=== PATIENT | male | born 1950 | race Caucasian/White ===

== ENCOUNTER 2018-08-27 08:52 | Outpatient (REF) | payer MEDICARE, SELFPAY ==
[2018-08-27 21:34] LABS: ALT 38 U/L (12-78); AST 22 U/L (15-37); Albumin 3.9 g/dL (3.4-5.0); Alkaline Phosphatase 73 U/L (46-116); Anion Gap 10.1 mmol/L (3-11); Bilirubin, Total 0.7 mg/dL (0.2-1.0); CO2 22.9 mmol/L (21.0-32.0); CREATININE 1.13 mg/dL (0.70-1.30); Calcium 8.2 mg/dL (8.5-10.1); Chloride 107 mmol/L (98-107); Cholesterol 191 mg/dL (50-200); Glucose 96 mg/dL (70-100); HDL Cholesterol 29 mg/dL (40-60); LDL CHOLESTEROL 131 mg/dL (<100); Potassium 4.3 mmol/L (3.5-5.1); Sodium 140 mmol/L (136-145); Total Protein 6.9 g/dL (6.4-8.2); Triglyceride 198 mg/dL (30-150)
[2018-08-27 21:48] LABS: Hemoglobin A1C 5.5 % (4.5-6.2)
[2018-08-27 21:57] LABS: BUN 19 mg/dL (7-18)
[2018-08-29 10:31] LABS: PSA, Screening 3.6 ng/ml (0-4.5)
== END 2018-08-27 09:12 ==
LOC: NCHCN 08:52
PROVIDERS: PCP Physician Assistant Medical; Visit Provider Physician Assistant Medical
DX: E78.5 Hyperlipidemia, unspecified (principal); I10 Essential (primary) hypertension; R73.09 Other abnormal glucose; Z12.5 Encounter for screening for malignant neoplasm of prostate; R97.20 Elevated prostate specific antigen [PSA]
CPT/HCPCS: 80053; 80061; 83721; 84153; 83036

== ENCOUNTER → 2018-09-21 13:09 | Outpatient (BNVA) | payer MEDICARE, OTHER, MEDICAID, SELFPAY | PROVIDERS: PCP Physician Assistant Medical; Visit Provider Internal Medicine Cardiovascular Disease | DX: I25.10 Atherosclerotic heart disease of native coronary artery without angina pectoris (principal); I10 Essential (primary) hypertension; E78.5 Hyperlipidemia, unspecified | CPT/HCPCS: 99213 ==

== ENCOUNTER 2018-09-24 07:56 | Day surgery (SDC) | payer MEDICARE, OTHER, MEDICAID, SELFPAY ==
--- NOTE | 2018-09-24 07:00 | W.COLOREPORT ---
Date of service: 09/24/18 Time of Service: :53 Colonoscopy Report Date of procedure: 09/24/18 Pre-op diagnosis general: hx of polyps Post-op diagnosis procedure note: other (multiple polyps, mild diverticulosis) Procedure: Colonoscopy with polypectomy by cold forceps Surgeon: Amie Rogers Anesthesia proc note operative: MAC (Miguel Blancas CRNA /ASA 3) Estimated blood loss (mL): 5 Pathology: other (ascending polyp, sigmoid polyp, rectal polyps X5) Complications: None Disposition: same day Indications: Mr. Tam is a pleasant 68-year-old gentleman who was seen in the office for a colonoscopy. He has a history of polyps. Risks, benefits and complications were reviewed with him and he wished to proceed. No guarantees were given or implied. Prep: Miralax/Dulcolax Procedure Start Time: :53 Procedure End Time: 10:36 Retraction Time: 24 minutes Findings: mild diverticulosis of the sigmoid colon multiple small sessile polyps tattooed area identified of previous tubulovillous adenoma. no polyp noted at this site Procedure Description: After informed consent was obtained the patient was taken to the procedure room and placed in a left decubitous position. Monitors were applied and a time out was done. The patients name, date of , procedure, allergies to medications and metal in their body was reviewed. The patient was then sedated. Once sedated and comfortable a rectal exam was done. External exam was normal. Internal exam revealed a normal sphincter tone and no palpable masses. The prostate was smooth. The scope was then introduced and retroflexed. No internal hemorrhoids were identified. The scope was then advanced to the cecum with some difficulty due to a tortuous colon on the right side. The TI and appendiceal orifice were identified. The prep was adequate. The scope was then slowly retracted over 24 minutes back into the rectum. Multiple polyps were removed with cold forceps. There was also mild diverticulosis noted of the sigmoid colon. The scope was removed and the patient was woken up and taken back to Same day surgery in stable condition. The patient tolerated the procedure well and there were no immediate complications. Follow up: The patient should follow up in 3-5 years unless they develop changes in bowel habits or other new gastrointestinal complaints.
--- NOTE | 2018-09-24 07:02 | PDOC.DSDIS_ITS ---
Discharge Plan Disposition Patient Disposition: HOME Condition: Good Discharge Details Reason For Visit: SCREENING Attending Provider: Amie Rogers Primary Care Provider: Jayro Koch Home Meds and New Rx's Prescriptions: Continue omeprazole 20 mg capsule,delayed release(DR/EC) 20 mg PO DAILY RF: 0 tamsulosin [Flomax] 0.4 mg capsule 0.4 mg PO DAILY RF: 0 amlodipine 5 MG tablet 5 mg PO DAILY Qty: 90 RF: 5 losartan 50 MG tablet 50 mg PO DAILY RF: 0 tadalafil [Cialis] 5 MG tablet 5 mg PO DAILY Qty: 30 RF: 12 aspirin 81 MG tablet,delayed release (DR/EC) 81 mg PO DAILY RF: 0 nitroglycerin 0.4 MG tablet, sublingual 0.4 mg PO PRN PRNRF: 0 Discharge Instructions Instructions: Colonoscopy (DC), Colorectal Polyps (DC), Diverticulosis (DC) Additional Instructions: Findings: Mild diverticulosis Multiple polyps most are probably benign but there might be one or two pre-cancerous polyps Follow up: 3-5 years New Medications: none Please call if you develop: fevers >101.5 Nausea or Vomiting Abdominal pain that is not transient 1. Because there will be medication in your system for the next 24 hours, you may feel a little sleepy. Your coordination will be affected. Therefore: a. Do not drive or operate dangerous equipment for 24 hours. b. Do not drink alcohol beverages for 24 hours (not even beer). c. Plan to go home and rest for the day. 2. Generally there are no restrictions on your activity after a day or so has gone by, but you may feel a bit fatigued for a few days. 3 After you arrive home you may have a light meal and return to a normal diet as you can tolerate it without feeling sick to your stomach. 4. After surgery, you may feel pain or discomfort. This should be only transient , but if it persists please contact your doctor. 5. If there are any questions regarding the findings of your procedure, please feel free to contact your doctor. 6. If you are unable to contact your doctor with a problem, contact the hospital at [phone]. 7. Continue all your regular medications unless directed otherwise. I understand the above instructions and have no questions. Signature of Patient or Responsible Adult Escort Date/Time Name of Responsible Adult Escort Signature of Nurse Date/Time Activity:: Activity as Tolerated Diet:: high fiber diet Discharge Orders Discharge Orders: Discharge Order (Routine); Ordered 09/24/18 Ordered By: Amie Rogers DS: Diagnosis Discharge Diagnosis (1) Colorectal polyps: Status: Acute (2) S/P colonoscopy with polypectomy: Status: Acute (3) Diverticulosis: Status: Acute
[2018-09-24 08:29] VITALS: BP 150/83; PULSE 72; RESP 16; TEMP 36.9; O2SAT 97
[2018-09-24] MEDS: Lactated Ringers 1,000 ML 80 ML IV (08:35)
--- NOTE | 2018-09-24 09:54 | BOWEL_PTH ---
PATIENT: Dominic Tam LOC: [facility] U#:[id number] AGE/SX: 68/M ROOM: RE09/24/[address]: Amie Rogers MD : 1950 BED: DIS: 09/24/2018 SPEC #: [id number] RECD: 09/24/18 12:36 STATUS: GLENN RE #: [id number] PEDRO PABLO: 09/24/18 09:[address]: Amie Rogers DEPT: Surgical Specimen RECD BY: María Marin ENTERED: 09/24/18 12:38 SP TYPE: Bowel OTHR DR: Jayro Koch Tissues: 1 - BIOPSY BOWEL 2 - BIOPSY BOWEL 3 - BIOPSY BOWEL Procedures: GROSS AND MICRO LEVEL 4 Comments: [id number]
[2018-09-24 11:10] VITALS: BP 124/76; PULSE 67; RESP 16; TEMP 36.3; O2SAT 95
== END 2018-09-24 11:43 | disposition home or self-care (01) ==
LOC: SUR 07:56
PROVIDERS: PCP Physician Assistant Medical; Visit Provider Surgery
PROC: 0DJD8ZZ Inspection of Lower Intestinal Tract, Via Natural or Artificial Opening Endoscopic (ICD-10-PCS; CPT 45378; principal; 2018-09-24 10:30)
DX: Z12.11 Encounter for screening for malignant neoplasm of colon (principal); D12.2 Benign neoplasm of ascending colon; K63.5 Polyp of colon; K62.1 Rectal polyp; Z86.010 Personal history of colon polyps; I10 Essential (primary) hypertension; G47.33 Obstructive sleep apnea (adult) (pediatric); K57.30 Diverticulosis of large intestine without perforation or abscess without bleeding; K21.9 Gastro-esophageal reflux disease without esophagitis
CPT/HCPCS: 45380; 88305

== ENCOUNTER 2018-10-01 08:54 | Emergency (ER) | payer MEDICARE, OTHER, MEDICAID, SELFPAY ==
[2018-10-01 09:01] VITALS: BP 141/73; PULSE 95; RESP 18; TEMP 36.1; O2SAT 96
--- NOTE | 2018-10-01 09:16 | DI.RAD_ITS ---
SYMPTOM/DIAGNOSIS: COUGH, WHEEZING FOR 2 WEEKS PA AND LATERAL CHEST: 10/01 Heart is not enlarged. There are areas of patchy increased radiodensity in lingula and left lower lobe consistent with acute pneumonia. These findings were not present on examination of 04/19/17. Otherwise, lungs are fairly clear. No pleural effusion seen. CONCLUSION: Findings consistent with left basilar pneumonia.
--- NOTE | 2018-10-01 09:26 | ED.GENADUL_ITS ---
Discharge Plan Disposition Patient Disposition: HOME Condition: Good Discharge Details Chief Complaint: RespSymp Clinical Impression: Pneumonia Primary Care Provider: Jayro Koch ED Provider: Flako Rnig Home Meds and New Rx's Prescriptions: New azithromycin [Zithromax] 500 mg tablet See Label Instructions .ROUTE .COMPLEX Qty: 6 RF: 0 prednisone 20 mg tablet 20 mg PO BID Qty: 10 RF: 0 No Action omeprazole 20 mg capsule,delayed release(DR/EC) 20 mg PO DAILY RF: 0 tamsulosin [Flomax] 0.4 mg capsule 0.4 mg PO DAILY RF: 0 amlodipine 5 MG tablet 5 mg PO DAILY Qty: 90 RF: 5 losartan 50 MG tablet 50 mg PO DAILY RF: 0 tadalafil [Cialis] 5 MG tablet 5 mg PO DAILY Qty: 30 RF: 12 aspirin 81 MG tablet,delayed release (DR/EC) 81 mg PO DAILY RF: 0 nitroglycerin 0.4 MG tablet, sublingual 0.4 mg PO PRN PRNRF: 0 Discharge Instructions Instructions: Pneumonia (ED) Referrals: Jayro Koch PA [Primary Care Provider] - Return if symptoms worsen Medical Decision Making Likely URI with possible pneumonia. Will start prednisone for the wheezing and administer albuterol neb. Likely start antibiotic for suspect pneumonia for symptoms for two weeks. Apprised of x-ray impression. He tolerated treatment and prednisone. Will prescribe Z-Pack. Respiratory came down to teach him how to use albuterol inhaler with spacer. Advised to return if symptoms worsen otherwise with pcp. Imaging Data Radiologic Study: Imaging: X-Ray My impression: pneumonia Radiologist's impression: pneumonia HPI General Date/Time Provider Initiated Documentation: 10/01/18 09:07 . Limitations to Documentation: no limitations . Information obtained by: patient . History of Present Illness 68 year old M presents to the emergency department with the chief complaint of URI, HPI Narrative: 68 y/o male here with c/o cough and wheezing for the past two weeks. HE tells me the symptoms started two weeks ago but thought he was on the down side of the illness last week when he had a colonoscopy. However the past five day the cough and wheezing has came back and gotten worse. Denies any fever or chills. Symptoms are worse at night. Non smoker. Related Data Home Medications Medication Instructions Recorded Confirmed aspirin 81 mg PO DAILY 06/06/13 10/01/18 nitroglycerin 0.4 mg PO PRN PRN 04/19/17 10/01/18 amlodipine 5 mg PO DAILY #90 tab-cap 06/29/17 10/01/18 losartan 50 mg PO DAILY tab-cap 03/05/18 10/01/18 tadalafil [Cialis] 5 mg PO DAILY #30 tab-cap 03/19/18 10/01/18 omeprazole 20 mg capsule,delayed 20 mg PO DAILY 09/14/18 10/01/18 release tamsulosin 0.4 mg capsule 0.4 mg PO DAILY tab-cap 09/21/18 10/01/18 azithromycin [Zithromax] See Label Instructions .ROUTE 10/01/18 .COMPLEX #6 tab prednisone 20 mg PO BID #10 tab 10/01/18 Previous Rx's Medication Instructions Recorded tadalafil [Cialis] 5 mg PO DAILY #30 tab-cap 03/19/18 azithromycin [Zithromax] See Label Instructions .ROUTE 10/01/18 .COMPLEX #6 tab prednisone 20 mg PO BID #10 tab 10/01/18 Allergies Allergy/AdvReac Type Severity Reaction Status Date / Time atorvastatin AdvReac Intermediate heart skips Verified 10/01/18 09:03 citalopram AdvReac Mild dizzyness Verified 10/01/18 09:03 losartan AdvReac Mild dizzyness Verified 10/01/18 09:03 simvastatin [From Zocor] AdvReac Mild dizzyness Verified 10/01/18 09:03 General Stated Complaint: RespSymp IZABELLA: 3 Review of Systems Eyes Reports system reviewed and no additional complaints, except as docu ENT Reports nasal congestion and Reports nasal discharge Cardiovascular Reports system reviewed and no additional complaints, except as docu Respiratory Reports cough and Reports wheezing Gastrointestinal Reports system reviewed and no additional complaints, except as docu Genitourinary Reports system reviewed and no additional complaints, except as docu Musculoskeletal Reports system reviewed and no additional complaints, except as docu Integumentary/Breasts Reports system reviewed and no additional complaints, except as docu Neurologic Reports system reviewed and no additional complaints, except as docu Allergic/Immunologic Reports wheezing PFSH Medical History BPH (benign prostatic hyperplasia) Back pain Cervicalgia Colonic polyp Coronary artery disease Elevated PSA GERD (gastroesophageal reflux disease) HTN (hypertension) Hyperlipidemia IAN (obstructive sleep apnea) Psoriasis Social History Smoking/Tobacco Use Status: Never alcohol intake: former substance use type: does not use Surgical History Colonoscopy planned (Acute ~09/24/18) H/O colonoscopy (Chronic 09/19/17) Arthroplasty of knee Colonoscopy - MAC (09/19/17) Coronary Stent Extraction of cataract colonoscopy (12/21/16) Exam Const General: cooperative, healthy appearing, comfortable and no acute distress Nutritional Appearance: average body habitus Orientation: alert, awake and oriented x3 HENMT Head: normal to inspection and atraumatic Ears: hearing grossly normal bilaterally, external ears normal and TM's normal bilaterally General nose exam: external nose normal, nares normal and no nasal discharge Mouth: oral mucosae normal Throat: posterior oropharynx abnormal erythema and exudates Eyes General: appearance normal, both eyes and all related structures Neck Neck: normal visual inspection, full ROM and no lymphadenopathy Resp Effort & Inspection: normal respiratory effort Auscultation: bronchovesicular breath sounds bilaterally (upper), rhonchi left upper (mild) and right upper (mild) and no wheezes Cardio Rate: regular rate Rhythm: regular rhythm Heart Sounds: S1 normal and S2 normal Skin General skin exam: no rashes or lesions noted Neuro General: alert, awake, oriented x3 and gait normal Extrem General: normal to inspection, full ROM and normal capillary refill Course Vital Signs Temperature 36.1 C L 10/01/18 09:01 Pulse 95 H 10/01/18 09:01 Respiratory Rate 18 10/01/18 09:01 Blood Pressure 141/73 H 10/01/18 09:01 Pulse Oximetry 96 10/01/18 09:01 Temperature 36.1 C L 10/01/18 09:01 Temperature Source Skin 10/01/18 09:01 Pulse 95 H 10/01/18 09:01 Respiratory Rate 18 10/01/18 09:01 Respiratory Effort 10/01/18 09:02 Blood Pressure 141/73 H 10/01/18 09:01 Blood Pressure Position Sitting 10/01/18 09:01 Pulse Oximetry 96 10/01/18 09:01 Oxygen Delivery Method Room Air 10/01/18 09:01 Oxygen Flow Rate 0 10/01/18 09:01 Pain Level 0 10/01/18 09:01
[2018-10-01] MEDS: predniSONE 20 MG TAB 60 MG PO (09:34)
[2018-10-01] MEDS: Albuterol 2.5 MG/3 ML INH SOLN VIAL UPD (09:35)
[2018-10-01] MEDS: Albuterol HFA 8 GM 60 PUFF INH IH (10:27)
[2018-10-01] MEDS: Inhaler, Assist Device 1 EACH MC (10:28)
[2018-10-01 10:38] VITALS: BP 95/59; PULSE 105; RESP 16; TEMP 36.9; O2SAT 93
== END 2018-10-01 10:44 | disposition home or self-care (01) ==
PROVIDERS: Emergency Provider Nurse Practitioner Family; PCP Physician Assistant Medical
DX: J18.9 Pneumonia, unspecified organism (principal); I10 Essential (primary) hypertension
CPT/HCPCS: 94640; 99283; 71046; J7512; J7613

== ENCOUNTER 2018-10-17 16:55 | Outpatient (REF) | payer MEDICARE, OTHER, SELFPAY ==
[2018-10-17 20:01] LABS: Abs Immature Grans 0.01 k/cumm (0.0-0.09); Absolute Basophil Count 0.05 k/cumm (0.0-0.2); Absolute Lymphocyte Count 1.79 k/cumm (1.2-3.4); Absolute Monocyte Count 0.53 k/cumm (0.11-0.7); Basophils % 0.7; HCT 38.1 % (40.0-50.0); HGB 13.4 g/dL (13.5-17.5); Immature Grans % 0.1; Lymphocytes % 25.6; Mean Corp. HGB Concentration 35.2 g/dL (32.0-36.0); Mean Corpuscular Hemoglobin 31.5 pg (27.0-33.0); Mean Corpuscular Volume 89.6 fL (80-95); Mean Platelet Volume 9.8 fL (8.0-11.0); Monocytes % 7.6; Platelet Count 275 x1000/uL (130-400); RBC 4.25 m/cumm (4.50-6.00); RBC Distribution Width 13.6 % (11.8-14.1); White Blood Cell Count 6.98 k/cumm (4.4-10.8)
[2018-10-17 20:36] LABS: ALT 48 U/L (12-78); AST 23 U/L (15-37); Albumin 3.3 g/dL (3.4-5.0); Alkaline Phosphatase 82 U/L (46-116); Anion Gap 11.9 mmol/L (3-11); BUN 19 mg/dL (7-18); Bilirubin, Total 0.5 mg/dL (0.2-1.0); CO2 23.1 mmol/L (21.0-32.0); CREATININE 1.18 mg/dL (0.70-1.30); Calcium 8.5 mg/dL (8.5-10.1); Chloride 104 mmol/L (98-107); Glucose 97 mg/dL (70-100); Potassium 4.3 mmol/L (3.5-5.1); Sodium 139 mmol/L (136-145); Total Protein 6.5 g/dL (6.4-8.2)
== END 2018-10-17 17:15 ==
LOC: NCHCN 16:55
PROVIDERS: PCP Physician Assistant Medical; Visit Provider Physician Assistant Medical
DX: J18.9 Pneumonia, unspecified organism (principal)
CPT/HCPCS: 80053; 85025

== ENCOUNTER 2018-10-18 00:24 | Outpatient (CLI) | payer MEDICARE, OTHER, MEDICAID, SELFPAY ==
--- NOTE | 2018-10-18 11:00 | DI.RAD_ITS ---
SYMPTOM/DIAGNOSIS: PNEUMONIA J18.9 PA AND LATERAL CHEST: Comparison is made with 01 Oct 2018. The previously noted lingular densities have now cleared. The heart size is normal. The aorta is mildly tortuous. IMPRESSION: Interval clearing of lingular infiltrate.
== END 2018-10-18 00:44 ==
PROVIDERS: PCP Physician Assistant Medical; Visit Provider Physician Assistant Medical
DX: J18.9 Pneumonia, unspecified organism (principal)
CPT/HCPCS: 71046

== ENCOUNTER 2018-11-04 14:10 | Emergency (ER) | payer MEDICARE, OTHER, SELFPAY ==
[2018-11-04 14:19] VITALS: BP 146/93; PULSE 91; TEMP 37; O2SAT 95
--- NOTE | 2018-11-04 14:30 | DI.RAD_ITS ---
SYMPTOM/DIAGNOSIS: COUGH, RECENT PNEUMONIA IN LLL PA AND LATERAL CHEST: 11/04/18 The heart is normal in size. The lungs are clear. The mediastinal structures and pleura appear intact. CONCLUSION: Normal chest.
[2018-11-04 14:38] VITALS: PULSE 91; RESP 16; RESP 4; RESP 8; O2SAT 95
[2018-11-04] MEDS: Albuterol/Ipratropium 3 ML UPD VIAL UPD (14:38)
[2018-11-04] MEDS: methylPREDNISolone SUCC 125 MG VIAL IM (14:39)
[2018-11-04 15:06] VITALS: RESP 1
--- NOTE | 2018-11-04 15:24 | DI.VRAD_ITS ---
EXAM: XR Chest, 2 Views EXAM DATE/TIME: 11/04/2018 2:31 PM CLINICAL HISTORY: 68 years old, male; Signs and symptoms; Cough; Patient HX: Cough, recent pneumoni in ll lobe TECHNIQUE: XR of the chest, 2 views. COMPARISON: CR XR CHEST 2V PA LATERAL 10/18/2018 10:52 AM FINDINGS: Lungs: No focal peripheral lung consolidation, air bronchogram formation, or silhouette sign. Pleural space: No pleural effusion or pneumothorax. Heart/Mediastinum: The heart is not enlarged. The mediastinal contours are normal. Bones/joints: No acute osseous abnormality. IMPRESSION: No pneumonia. Dictated and Authenticated by: Mark Nunez MD. Ordering:LYDIA Alvarado MD
--- NOTE | 2018-11-04 15:50 | ED.GENADUL_ITS ---
Discharge Plan Disposition Patient Disposition: HOME Condition: Good Discharge Details Chief Complaint: RespSymp Clinical Impression: Asthma, Bronchitis Primary Care Provider: Jayro Koch ED Provider: Christiano Tom Home Meds and New Rx's Prescriptions: New prednisone 50 MG tablet 50 mg PO DAILY Qty: 5 RF: 0 benzonatate [Tessalon Perles] 100 mg capsule 100 mg PO TID PRN (Reason: cough) Qty: 30 RF: 0 No Action omeprazole 20 mg capsule,delayed release(DR/EC) 20 mg PO DAILY RF: 0 tamsulosin [Flomax] 0.4 mg capsule 0.4 mg PO DAILY RF: 0 amlodipine 5 MG tablet 5 mg PO DAILY Qty: 90 RF: 5 losartan 50 MG tablet 50 mg PO DAILY RF: 0 tadalafil [Cialis] 5 MG tablet 5 mg PO DAILY Qty: 30 RF: 12 aspirin 81 MG tablet,delayed release (DR/EC) 81 mg PO DAILY RF: 0 nitroglycerin 0.4 MG tablet, sublingual 0.4 mg PO PRN PRNRF: 0 Discharge Instructions Instructions: Asthma (ED), Acute Bronchitis (ED) Additional Instructions: Please take the steroid pill as directed as well as the cough medicine. Please follow-up with your primary care provider for discussion about chronic inhaled steroid therapy. Please continue to use your home nebulizer every 4-6 hours. If you notice any worsening of your symptoms, or any new symptoms such as vomiting, diarrhea, fever, chills, shortness of breath, chest pain, numbness, weakness, or fainting , please return immediately to the emergency department for reevaluation. Please follow up with your primary care provider as soon as possible for reassessment and reevaluation. As always, it was a pleasure participating in your medical care today. Referrals: Jayro Koch PA [Primary Care Provider] - Medical Decision Making This is a pleasant 68-year-old male who presents for evaluation of cough for the last 2 months. The patient initially had a cough for the first month he had cough with productive green and yellow sputum, he received a chest x-ray, was diagnosed with pneumonia and given azithromycin. He did well with this however his symptoms eventually returned. He was then started on a new antibiotic by his primary care provider was on this for 2 weeks and had complete resolution of his symptoms. He was also on steroids and nebulizer at that time. Last antibiotic was finished 2 weeks ago. Since then he has had a slow return of his symptoms however they have been much more mild this time. He has never had a fever, and he still has no fever. He does admit to a mild chronic cough, and some productive clear white sputum. His symptoms are completely resolved when he takes his DuoNeb. Made worsened by nothing. He denies any significant chest pain or severe shortness of breath. He denies any chills, nausea, vomiting, or diarrhea. He has no other complaints at this time. He denies any significant chest pain, arm neck or shoulder pain. Past medical history is positive for reflux, cardiac stents, and hypertension. He states that his symptoms are completely different than any of his heart problems that he has had in the past. He denies any tobacco use. He denies any history of exposure to asbestos, he does heat with a wood stove at home. Here in the emergency department the patient had notable wheezes throughout, no evidence of crackles. Chest x-ray was performed and demonstrates no evidence of acute pneumonia. With nonpurulent sputum, no fevers, no hypoxemia and reassuring vital signs I feel his symptoms more clinically consistent with bronchitis and reactive airway disease than actual pneumonia. We did give him a breathing treatment here in the patient had complete resolution of his symptoms. Will recommend continued nebulizer use at home, we will give steroids for outpatient use. With no signs of infectious etiology that I can appreciate on exam or imaging I do not feel that antibiotics are indicated at this time. I have encouraged the patient to follow-up closely with his primary care provider for potential inhaled steroid therapy if he does not improve with the oral steroids. Discussed red flags which to return the patient understands. I have extensively reviewed the treatment plan and discharge instructions with the patient. I have addressed all patient concerns at this time. The patient was made aware of what symptoms to monitor for that would warrant a return to the emergency department. Discussed the plan with the patient, they demonstrate verbal understanding and agreement with our assessment and plan at this time. FINDINGS: Lungs: No focal peripheral lung consolidation, air bronchogram formation, or silhouette sign. Pleural space: No pleural effusion or pneumothorax. Heart/Mediastinum: The heart is not enlarged. The mediastinal contours are normal. Bones/joints: No acute osseous abnormality. IMPRESSION: No pneumonia. Dictated and Authenticated by: Mark Nunez MD. HPI General Date/Time Provider Initiated Documentation: 11/04/18 14:13 . HPI Narrative: This is a pleasant 68-year-old male who presents for evaluation of cough for the last 2 months. The patient initially had a cough for the first month he had cough with productive green and yellow sputum, he received a chest x-ray, was diagnosed with pneumonia and given azithromycin. He did well with this however his symptoms eventually returned. He was then started on a new antibiotic by his primary care provider was on this for 2 weeks and had complete resolution of his symptoms. He was also on steroids and nebulizer at that time. Last antibiotic was finished 2 weeks ago. Since then he has had a slow return of his symptoms however they have been much more mild this time. He has never had a fever, and he still has no fever. He does admit to a mild chronic cough, and some productive clear white sputum. His symptoms are completely resolved when he takes his DuoNeb. Made worsened by nothing. He denies any significant chest pain or severe shortness of breath. He denies any chills, nausea, vomiting, or diarrhea. He has no other complaints at this time. He denies any significant chest pain, arm neck or shoulder pain. Past medical history is positive for reflux, cardiac stents, and hypertension. He states that his symptoms are completely different than any of his heart problems that he has had in the past. He denies any tobacco use. He denies any history of exposure to asbestos, he does heat with a wood stove at home. Related Data Home Medications Medication Instructions Recorded Confirmed aspirin 81 mg PO DAILY 06/06/13 11/04/18 nitroglycerin 0.4 mg PO PRN PRN 04/19/17 11/04/18 amlodipine 5 mg PO DAILY #90 tab-cap 06/29/17 11/04/18 losartan 50 mg PO DAILY tab-cap 03/05/18 11/04/18 tadalafil [Cialis] 5 mg PO DAILY #30 tab-cap 03/19/18 11/04/18 omeprazole 20 mg capsule,delayed 20 mg PO DAILY 09/14/18 11/04/18 release tamsulosin 0.4 mg capsule 0.4 mg PO DAILY tab-cap 09/21/18 11/04/18 benzonatate [Tessalon Perles] 100 mg PO TID PRN #30 cap 11/04/18 prednisone 50 mg PO DAILY #5 tab 11/04/18 Previous Rx's Medication Instructions Recorded tadalafil [Cialis] 5 mg PO DAILY #30 tab-cap 03/19/18 benzonatate [Tessalon Perles] 100 mg PO TID PRN #30 cap 11/04/18 prednisone 50 mg PO DAILY #5 tab 11/04/18 Allergies Allergy/AdvReac Type Severity Reaction Status Date / Time atorvastatin AdvReac Intermediate heart skips Verified 11/04/18 14:23 citalopram AdvReac Mild dizzyness Verified 11/04/18 14:23 losartan AdvReac Mild dizzyness Verified 11/04/18 14:23 simvastatin [From Zocor] AdvReac Mild dizzyness Verified 11/04/18 14:23 General Stated Complaint: RespSymp IZABELLA: 3 Review of Systems Review of Systems All systems reviewed & are unremarkable except as noted in HPI and below PFSH Medical History BPH (benign prostatic hyperplasia) Back pain Cervicalgia Colonic polyp Coronary artery disease Elevated PSA GERD (gastroesophageal reflux disease) HTN (hypertension) Hyperlipidemia IAN (obstructive sleep apnea) Psoriasis Surgical History Colonoscopy planned (Acute ~09/24/18) H/O colonoscopy (Chronic 09/19/17) Arthroplasty of knee Colonoscopy - MAC (09/19/17) Coronary Stent Extraction of cataract colonoscopy (12/21/16) Social History Smoking/Tobacco Use Status: Never alcohol intake: former substance use type: does not use Exam Narrative Exam Narrative: 1.Const: Well-nourished, Well-developed, appearing stated age 2.Eyes: PERRL, no conjunctival injection, and symmetrical lids. 3.ENT: Atraumatic external nose and ears. Moist MM. Neck: Symmetric, trachea midline, No thyromegaly. 4.CVS: +S1/S2, No murmurs or gallops. Peripheral pulses 2+ and equal in all extremities. Brisk capillary refill in all extremities. 5.RESP: Unlabored respiratory effort. Clear to auscultation bilaterally. No rales or rhonchi. Notable wheezes throughout, no significant crackles. 6.GI: Soft, Nontender/Nondistended, No hepatosplenomegaly. No guarding or rebound. 7.MSK: Normocephalic/Atraumatic, Extremities w/o deformity or ttp No cyanosis or clubbing, Normal movement of all extremities 8.Skin: Warm, Dry. No rashes or lesions. 9.Neuro: stone cutter II-XII grossly intact. Sensation grossly intact, no focal neurologic deficits. 10.Psych: (AAO) x3. Appropriate mood and affect Course Vital Signs Temperature 37.0 C 11/04/18 14:19 Pulse 91 H 11/04/18 14:19 Blood Pressure 146/93 H 11/04/18 14:19 Pulse Oximetry 95 11/04/18 14:19 Temperature 37.0 C 11/04/18 14:19 Temperature Source Temporal Artery Scan 11/04/18 14:19 Pulse 91 H 11/04/18 14:38 Respiratory Rate 16 11/04/18 14:38 Respiratory Effort 11/04/18 14:22 Blood Pressure 146/93 H 11/04/18 14:19 Blood Pressure Position Sitting 11/04/18 14:19 Pulse Oximetry 95 11/04/18 14:38 Oxygen Delivery Method Room Air 11/04/18 14:38 Oxygen Flow Rate 0 11/04/18 14:38 Pain Level 0 11/04/18 14:19 Comment 11/04/18 14:19
== END 2018-11-04 15:59 | disposition home or self-care (01) ==
PROVIDERS: Emergency Provider Student in an Organized Health Care Education/Training Program; PCP Physician Assistant Medical
DX: J44.0 Chronic obstructive pulmonary disease with (acute) lower respiratory infection (principal); J20.9 Acute bronchitis, unspecified; J45.909 Unspecified asthma, uncomplicated; I10 Essential (primary) hypertension
CPT/HCPCS: 94640; 96372; 99284; 71046; 99285; J2930; J7620

== ENCOUNTER 2018-11-10 14:53 | Emergency (ER) | payer MEDICARE, MEDICAID, OTHER, SELFPAY ==
[2018-11-10] VITALS (24 sets, daily range): BP systolic 134–168; BP diastolic 73–90; PULSE 74–99; RESP 1–28; TEMP 36.4; O2SAT 95–99
--- NOTE | 2018-11-10 15:03 | ED.GENADUL_ITS ---
Discharge Plan Disposition Patient Disposition: HOME Condition: Improving Discharge Details Chief Complaint: SOB Clinical Impression: Pneumonia, Acute bronchospasm Primary Care Provider: Jayro Koch ED Provider: Guille Smith Home Meds and New Rx's Prescriptions: New cefdinir 300 mg capsule 300 mg PO Q12H 10 Days Qty: 20 RF: 0 prednisone 10 mg tablet See Rx Instructions .ROUTE .COMPLEX Qty: 45 RF: 0 Continued omeprazole 20 mg capsule,delayed release(DR/EC) 20 mg PO DAILY RF: 0 tamsulosin [Flomax] 0.4 mg capsule 0.4 mg PO DAILY RF: 0 amlodipine 5 MG tablet 5 mg PO DAILY Qty: 90 RF: 5 losartan 50 MG tablet 50 mg PO DAILY RF: 0 tadalafil [Cialis] 5 MG tablet 5 mg PO DAILY Qty: 30 RF: 12 aspirin 81 MG tablet,delayed release (DR/EC) 81 mg PO DAILY RF: 0 nitroglycerin 0.4 MG tablet, sublingual 0.4 mg PO PRN PRNRF: 0 prednisone 50 MG tablet 50 mg PO DAILY Qty: 5 RF: 0 benzonatate [Tessalon Perles] 100 mg capsule 100 mg PO TID PRN (Reason: cough) Qty: 30 RF: 0 Medical Decision Making 68-year-old male who has struggled with upper respiratory illness over 2 months time with multiple rounds of antibiotics and brief bursts of steroids. He states that after the recent burst of steroids administered on 1223, after ceasing them he had recurrent coughing with wheeze. He arrives to the emergency department tachypneic and unable to speak in full sentences but with room air sat of 96%. He is wheezy on exam. Differential diagnosis includes pneumonitis, bronchitis, COPD exacerbation, and must exclude pulmonary embolism. Patient had IV access established, placed on a composing machine operator/tender, given steroids, inhaled beta agonist, referred for laboratory testing and chest x-ray. Chest x-ray clear. CT reveals patchy densities in the right upper and right lower lobe consistent with pneumonitis. Patient fairly dramatically improved following DuoNeb and steroids. I think he has persistent bronchospasm and persistent pneumonia. He is given a dose of IV ceftriaxone I will place him on a course of cefpodoxime. He will require a longer burst and subsequent taper of prednisone. I discussed this plan of management as well as follow-up and return precautions with him. He stable, improved, appropriate for discharge home at this time. ECG Data Attestation: I personally reviewed and interpreted this ECG (s) as follows: Interpretation: Normal sinus rhythm, the rate is 95, QRS is narrow, there is no ST segment elevation HPI General Mode of arrival: wheelchair . Date/Time Provider Initiated Documentation: 11/10/18 14:53 . Limitations to Documentation: no limitations . Information obtained by: patient and family . History of Present Illness 68 year old M presents to the emergency department with the chief complaint of Cough and shortness of breath, described as severe, Quality is described as dull and constant, Patient started experiencing this day(s) and it has been constant. No relieving factors improve symptom(s), No exacerbating factors reported . Patient notes cough and shortness of breath. Patient did receive the following treatments prior to arrival, none HPI Narrative: Cough and shortness of breath, recurrent and worsening since stopping prednisone that was prescribed on November 04. No current antibiotics. Similar episodes over 2 months this fall with repeated doses of antibiotic Related Data Home Medications Medication Instructions Recorded Confirmed aspirin 81 mg PO DAILY 06/06/13 11/04/18 nitroglycerin 0.4 mg PO PRN PRN 04/19/17 11/04/18 amlodipine 5 mg PO DAILY #90 tab-cap 06/29/17 11/04/18 losartan 50 mg PO DAILY tab-cap 03/05/18 11/04/18 tadalafil [Cialis] 5 mg PO DAILY #30 tab-cap 03/19/18 11/04/18 omeprazole 20 mg capsule,delayed 20 mg PO DAILY 09/14/18 11/04/18 release tamsulosin 0.4 mg capsule 0.4 mg PO DAILY tab-cap 09/21/18 11/04/18 benzonatate [Tessalon Perles] 100 mg PO TID PRN #30 cap 11/04/18 prednisone 50 mg PO DAILY #5 tab 11/04/18 cefdinir 300 mg PO Q12H 10 Days #20 cap 11/10/18 prednisone See Rx Instructions .ROUTE 11/10/18 .COMPLEX #45 tab Previous Rx's Medication Instructions Recorded tadalafil [Cialis] 5 mg PO DAILY #30 tab-cap 03/19/18 benzonatate [Tessalon Perles] 100 mg PO TID PRN #30 cap 11/04/18 prednisone 50 mg PO DAILY #5 tab 11/04/18 cefdinir 300 mg PO Q12H 10 Days #20 cap 11/10/18 prednisone See Rx Instructions .ROUTE 11/10/18 .COMPLEX #45 tab Allergies Allergy/AdvReac Type Severity Reaction Status Date / Time atorvastatin AdvReac Intermediate heart skips Verified 11/04/18 14:23 citalopram AdvReac Mild dizzyness Verified 11/04/18 14:23 losartan AdvReac Mild dizzyness Verified 11/04/18 14:23 simvastatin [From Zocor] AdvReac Mild dizzyness Verified 11/04/18 14:23 General IZABELLA: 3 Review of Systems Review of Systems 8 systems reviewed and otherwise negative, no lower extremity pain, swelling, edema PFSH Medical History BPH (benign prostatic hyperplasia) Back pain Cervicalgia Colonic polyp Coronary artery disease Elevated PSA GERD (gastroesophageal reflux disease) HTN (hypertension) Hyperlipidemia IAN (obstructive sleep apnea) Psoriasis Surgical History Colonoscopy planned (Acute ~09/24/18) H/O colonoscopy (Chronic 09/19/17) Arthroplasty of knee Colonoscopy - MAC (09/19/17) Coronary Stent Extraction of cataract colonoscopy (12/21/16) Social History Smoking/Tobacco Use Status: Never alcohol intake: former substance use type: does not use Exam Narrative Exam Narrative: GEN: awake, alert, oriented 3. Pleasant, well groomed, interactive. HEAD: Normocephalic, atraumatic ENT: Mucous membranes moist, oropharynx unremarkable, External ear exam unremarkable EYES: PERRL, EOMI NECK: Full ROM, no DENISE, no menigismus CHEST/RESP: Nontender, increased respiratory rate and work of breathing, diminished throughout with bilateral end expiratory wheeze CARDIOVASCULAR: RRR, no murmur, rub rashaun. 2+ Rad pulse bilateral ABDOMEN: Soft, nontender, no mass. +Bowel sounds EXT: Full ROM, no edema, no rash Neuro: Grossly normal neurologic exam, conversant, interactive. Psych: Speech fluent, thoughts congruent, affect normal
[2018-11-10] MEDS: Albuterol/Ipratropium 3 ML UPD VIAL UPD (15:11)
--- NOTE | 2018-11-10 15:12 | DI.COMBO_ITS ---
SYMPTOM/DIAGNOSIS: RECURRENT COUGH, SOB PORTABLE AP CHEST: Comparison is made with 11/04/18. The heart size is normal. The aorta is tortuous. The lungs appear clear. No infiltrate, effusion or pulmonary edema is seen. There is no evidence of a pneumothorax. IMPRESSION: Negative portable chest xray. PE CHEST CT: CT angiography was performed with multi slice acquisition and multi planar and 3D reconstruction. The pulmonary arteries are not opacified and pulmonary emboli cannot be excluded. There is mild dilatation of the ascending aorta to 3.9 cm. There is no evidence of dissection. The lungs show mild respiratory motion. There is a question of a small infiltrate seen laterally in the right lung base as well as in the posterolateral aspect of the right upper lobe. There is minimal atelectasis versus scarring in the lingula. No pleural or pericardial effusions are seen. Coronary artery calcifications are noted. There is a small hiatal hernia. IMPRESSION: Mild dilatation of the ascending thoracic aorta. No evidence of dissection.
[2018-11-10] MEDS: methylPREDNISolone SUCC 125 MG VIAL IM (15:15)
[2018-11-10 15:18] LABS: Abs Immature Grans 0.15 k/cumm (0.0-0.09); Absolute Basophil Count 0.04 k/cumm (0.0-0.2); Absolute Eosinophil Count 1.28 k/cumm (0.0-0.7); Absolute Lymphocyte Count 1.94 k/cumm (1.2-3.4); Absolute Monocyte Count 0.71 k/cumm (0.11-0.7); Basophils % 0.4; Eosinophils % 13.2; HCT 39.9 % (40.0-50.0); HGB 14.1 g/dL (13.5-17.5); Immature Grans % 1.5; Mean Corp. HGB Concentration 35.3 g/dL (32.0-36.0); Mean Corpuscular Hemoglobin 30.2 pg (27.0-33.0); Mean Corpuscular Volume 85.4 fL (80-95); Mean Platelet Volume 8.5 fL (8.0-11.0); Monocytes % 7.3; Neutrophils % 57.6; Platelet Count 245 x1000/uL (130-400); RBC 4.67 m/cumm (4.50-6.00); RBC Distribution Width 14.1 % (11.8-14.1); White Blood Cell Count 9.72 k/cumm (4.4-10.8)
[2018-11-10 15:27] LABS: Diff Comment Agrees w/ Instrument
[2018-11-10 15:28] LABS: RBC Morphology Normal
[2018-11-10 15:32] LABS: ALT 39 U/L (12-78); AST 18 U/L (15-37); Albumin 3.5 g/dL (3.4-5.0); Alkaline Phosphatase 70 U/L (46-116); Anion Gap 8.8 mmol/L (3-11); BUN 22 mg/dL (7-18); Bilirubin, Total 0.5 mg/dL (0.2-1.0); CO2 23.2 mmol/L (21.0-32.0); CREATININE 1.14 mg/dL (0.70-1.30); Calcium 7.8 mg/dL (8.5-10.1); Chloride 103 mmol/L (98-107); Glucose 112 mg/dL (70-100); Magnesium 1.9 mg/dL (1.8-2.4); Potassium 3.6 mmol/L (3.5-5.1); Sodium 135 mmol/L (136-145); Total Protein 6.7 g/dL (6.4-8.2)
[2018-11-10 15:33] LABS: Troponin I < 0.02 ng/mL (0.00-0.06)
[2018-11-10 15:47] LABS: D-Dimer 474 ng/mlFEU (<500)
--- NOTE | 2018-11-10 15:52 | DI.VRAD_ITS ---
EXAM: XR Chest, 1 View EXAM DATE/TIME: 11/10/2018 3:12 PM CLINICAL HISTORY: 68 years old, male; Signs and symptoms; Cough and shortness of breath; Patient HX: Cough, SOB TECHNIQUE: XR of the chest, 1 view. COMPARISON: CR XR CHEST 2V PA LATERAL 11/04/2018 2:46 PM FINDINGS: Lungs: Unremarkable. No consolidation. Pleural space: Unremarkable. No pleural effusion. No pneumothorax. Heart/Mediastinum: Unremarkable. No cardiomegaly. Bones/joints: Unremarkable. IMPRESSION: No acute findings. Dictated and Authenticated by: Abiola Wallace MD. Ordering:STEPHANIE Han MD
[2018-11-10] MEDS: Omnipaque 350 MG/ML 100 ML BTL IJ (16:46)
--- NOTE | 2018-11-10 16:59 | DI.VRAD_ITS ---
EXAM: CT Angiography Chest With Contrast EXAM DATE/TIME: 11/10/2018 3:52 PM CLINICAL HISTORY: 68 years old, male; Signs and symptoms; Cough and shortness of breath; Prior surgery; Surgery type: Stents; Patient HX: Recurrent cough, SOB TECHNIQUE: Axial computed tomographic angiography images of the chest with intravenous contrast using CT angiography protocol. Coronal and sagittal reformatted images were created and reviewed. MIP reconstructed images were created and reviewed. COMPARISON: SC XR PORTABLE CHEST AP 11/10/2018 3:18 PM FINDINGS: Pulmonary arteries: The pulmonary arteries are not opacified and cannot be evaluated for possible pulmonary artery emboli. Aorta: Mild aneurysmal dilatation of the ascending thoracic aorta with an AP diameter of 3.9 cm. No rupture or dissection. Thyroid: 15 mm diameter low-density lesion within the left thyroid lobe. Lungs: There are minimal patchy densities in the posterior lateral right upper lobe and posterior lateral right lower lobe suspicious for minimal pneumonitis. Minimal atelectasis within the lingula. No pulmonary consolidation. Pleural space: Normal. No pneumothorax. No pleural effusion. Heart: Mild coronary atherosclerosis. Stomach and bowel: Findings suspicious for tiny gastric hiatus hernia. Lymph nodes: Unremarkable. No enlarged lymph nodes. Bones/joints: Mild degenerative spondylosis of the thoracic spine. Soft tissues: Unremarkable. IMPRESSION: 1. Mild aneurysmal dilatation of the ascending thoracic aorta. 2. Findings suspicious for tiny gastric hiatus hernia. 3. Minimal right upper lobe and right lower lobe pneumonitis. 4. 1.5 cm low-density nodule within the left thyroid lobe. Followup evaluation with thyroid ultrasound is recommended. Dictated and Authenticated by: Dipesh Mendez MD. Ordering:STEPHANIE Han MD
== END 2018-11-10 18:00 | disposition home or self-care (01) ==
PROVIDERS: Emergency Provider Emergency Medicine; PCP Physician Assistant Medical
DX: J18.9 Pneumonia, unspecified organism (principal); J98.01 Acute bronchospasm; I10 Essential (primary) hypertension
CPT/HCPCS: 36415; 71275; 80053; 93005; 94640; 96365; 96372; 99285; 71045; 83735; 84484; 85025; 85379; 93010; 99284; J0696; J2930; J3490; J7620

== ENCOUNTER 2018-11-26 10:59 | Outpatient (REF) | payer MEDICARE, OTHER, SELFPAY ==
[2018-11-26 21:20] LABS: Anion Gap 11.9 mmol/L (3-11); BUN 24 mg/dL (7-18); CO2 22.1 mmol/L (21.0-32.0); CREATININE 1.13 mg/dL (0.70-1.30); Calcium 8.5 mg/dL (8.5-10.1); Chloride 105 mmol/L (98-107); FREE T4 1.01 ng/dL (0.76-1.46); Glucose 92 mg/dL (70-100); Potassium 4.3 mmol/L (3.5-5.1); Sodium 139 mmol/L (136-145); TSH 2.91 uIU/mL (0.358-3.74)
[2018-11-27 17:50] LABS: T3, Total 129 ng/dl (97-169)
[2018-11-28 13:59] LABS: Parathyroid Hormone,Intact 71 pg/ml (19-88)
== END 2018-11-26 11:19 ==
LOC: NCHCN 10:59
PROVIDERS: PCP Physician Assistant Medical; Visit Provider Physician Assistant Medical
DX: E04.1 Nontoxic single thyroid nodule (principal); E83.51 Hypocalcemia
CPT/HCPCS: 80048; 83970; 84439; 84443; 84480

== ENCOUNTER 2018-11-27 00:20 | Outpatient (CLI) | payer MEDICARE, OTHER, SELFPAY ==
--- NOTE | 2018-11-27 09:50 | DI.US_ITS ---
SYMPTOM/DIAGNOSIS: THYROID NODULE, LT, E04.1, LOW DENSITY LESION THYROID ULTRASOUND: Chest CT showed a 15 mm. nodule in the left lobe. The thyroid was not fully included on the chest CT. The right lobe measures 4.2 by 1.5 by 1.6 cm. There is a questionable isoechoic nodule near the upper pole of the right lobe measuring 12 mm. in greatest dimension. A mixed cystic lesion is seen in the left lobe measuring 1.8 by 1.9 by 1.5 cm. No blood flow was detected. The isthmus is normal in thickness. IMPRESSION: 1.9 cm. complex nodule of the left lobe of the thyroid. Biopsy could be considered for further evaluation.
== END 2018-11-27 00:40 ==
PROVIDERS: PCP Physician Assistant Medical; Visit Provider Physician Assistant Medical
DX: E04.1 Nontoxic single thyroid nodule (principal)
CPT/HCPCS: 76536

== ENCOUNTER → 2019-04-04 13:09 | Outpatient (BNVA) | payer MEDICARE, OTHER, SELFPAY | PROVIDERS: PCP Physician Assistant Medical; Visit Provider Internal Medicine Cardiovascular Disease | DX: I25.10 Atherosclerotic heart disease of native coronary artery without angina pectoris (principal); I10 Essential (primary) hypertension; E78.5 Hyperlipidemia, unspecified | CPT/HCPCS: 99213 ==

== ENCOUNTER → 2019-04-26 08:26 | Outpatient (BNVA) | payer MEDICARE, OTHER, SELFPAY | PROVIDERS: PCP Physician Assistant Medical; Visit Provider Urology | DX: R35.1 Nocturia (principal); N40.1 Benign prostatic hyperplasia with lower urinary tract symptoms; N13.8 Other obstructive and reflux uropathy | CPT/HCPCS: 99213 ==

== ENCOUNTER 2019-06-16 14:37 | Emergency (ER) | payer MEDICARE, OTHER, SELFPAY ==
[2019-06-16 14:51] VITALS: BP 165/78; PULSE 73; RESP 18; TEMP 36.7; O2SAT 98
[2019-06-16] MEDS: Ondansetron 4 MG/2 ML VIAL (15:19)
[2019-06-16] MEDS: Normal Saline 1,000 ML 150 ML IV (15:19)
[2019-06-16 15:32] LABS: Abs Immature Grans 0.02 k/cumm (0.0-0.09); Absolute Basophil Count 0.01 k/cumm (0.0-0.2); Absolute Lymphocyte Count 0.74 k/cumm (1.2-3.4); Absolute Monocyte Count 0.53 k/cumm (0.11-0.7); Absolute Neutrophil Count 8.97 k/cumm (1.2-6.7); Basophils % 0.1; HCT 38.9 % (40.0-50.0); Immature Grans % 0.2; Lymphocytes % 7.2; Mean Corpuscular Hemoglobin 30.1 pg (27.0-33.0); Mean Corpuscular Volume 83.7 fL (80-95); Mean Platelet Volume 9.6 fL (8.0-11.0); Monocytes % 5.2; Neutrophils % 87.3; Platelet Count 247 x1000/uL (130-400); RBC 4.65 m/cumm (4.50-6.00); RBC Distribution Width 13.6 % (11.8-14.1); White Blood Cell Count 10.27 k/cumm (4.4-10.8)
[2019-06-16 15:35] LABS: Bilirubin Negative (Negative); Blood Moderate (Negative); Clarity Clear (Clear); Glucose Negative (Negative); Ketones Negative (Negative); Leukocyte Esterase Negative (Negative); Nitrite Negative (Negative); Specific Gravity 1.015 (1.005-1.025); Urobilinogen 0.2 EU/dL (Up TO 0.2); pH 7.5 (5-8)
[2019-06-16] MEDS: Ketorolac 15 MG/ML VIAL IVP (15:42)
[2019-06-16 15:46] LABS: RBC 20-50 (0-2); WBC 0-2 HPF (0-5)
[2019-06-16 15:47] LABS: Bacteria Negative HPF (Negative); C & S Indicated? No; Casts Negative LPF (Negative); Crystals Negative HPF (Negative); Epithelial Cells Negative HPF (Negative); Mucus Negative (Negative); Other Cells Negative (Negative)
--- NOTE | 2019-06-16 15:50 | DI.CT_ITS ---
SYMPTOMS/DIAGNOSIS: LEFT FLANK PAIN NONCONTRAST CT OF THE ABDOMEN AND PELVIS: There is a 3 mm stone at the left ureterovesical junction causing dilatation of the left ureter. There is some stranding around the left kidney. The prostate is quite enlarged. The bladder is somewhat distended. The right kidney is unremarkable. There is a small hiatal hernia. The heart is mildly enlarged. Coronary artery calcifications are seen. There is minimal basilar atelectasis or scarring. The liver, gallbladder, spleen, pancreas and adrenals are unremarkable. There is no bowel dilatation or inflammatory changes. IMPRESSION: 1. Moderate left hydronephrosis secondary to the 3 mm stone at the ureterovesical junction. There is perinephric stranding. A retroaortic left renal vein is incidentally noted. 2. Markedly enlarged prostate.
[2019-06-16 15:55] LABS: ALT 26 U/L (12-78); AST 17 U/L (15-37); Albumin 4.1 g/dL (3.4-5.0); Alkaline Phosphatase 81 U/L (46-116); Anion Gap 13.6 mmol/L (3-11); BUN 23 mg/dL (7-18); Bilirubin, Total 0.8 mg/dL (0.2-1.0); CO2 19.4 mmol/L (21.0-32.0); CREATININE 1.62 mg/dL (0.70-1.30); Calcium 8.5 mg/dL (8.5-10.1); Chloride 106 mmol/L (98-107); Estimated GFR 42.46 (mL/min/1.73m2); Glucose 132 mg/dL (70-100); Potassium 3.6 mmol/L (3.5-5.1); Sodium 139 mmol/L (136-145); Total Protein 7.6 g/dL (6.4-8.2)
--- NOTE | 2019-06-16 17:00 | DI.VRAD_ITS ---
EXAM: CT Abdomen and Pelvis Without Contrast EXAM DATE/TIME: 06/16/2019 3:08 PM CLINICAL HISTORY: 68 years old, male; Abdominal pain; Flank; Left TECHNIQUE: Imaging protocol: Axial computed tomography images of the abdomen and pelvis without contrast. Coronal and sagittal reformatted images were created and reviewed. Radiation optimization: All CT scans at this facility use at least one of these dose optimization techniques: automated exposure control; mA and/or kV adjustment per patient size (includes targeted exams where dose is matched to clinical indication); or iterative reconstruction. COMPARISON: US RENAL ULTRASOUND(P) 03/19/2018 10:30 AM FINDINGS: Lungs: Right basilar atelectasis Mediastinum: Small hiatal hernia Liver: Normal. No mass. Gallbladder and bile ducts: Normal. No calcified stones. No ductal dilation. Pancreas: Normal. No ductal dilation. Spleen: Normal. No splenomegaly. Adrenals: Normal. No mass. Kidneys and ureters: 3 millimeter LEFT UVJ calculus causes dilatation of LEFT collecting system and LEFT ureter. The LEFT kidney is edematous and there is LEFT perirenal stranding. There are inflammatory changes around the proximal right ureter. This could represent a ruptured fornix. 5 mm hyperdense nodule right kidney Stomach and bowel: Normal. No obstruction. No mucosal thickening. Appendix: No evidence of appendicitis. Intraperitoneal space: Normal. No free air. No significant fluid collection. Vasculature: Coronary artery calcifications may indicate coronary artery disease Lymph nodes: Normal. No enlarged lymph nodes. Bladder: Unremarkable as visualized. Reproductive: The prostate is enlarged, greater than 6 cm. Recommend urology consult. Bones/joints: No acute fracture. No dislocation. Soft tissues: Umbilical hernia contains fat IMPRESSION: 1. 3 millimeter LEFT UVJ calculus causes dilatation of LEFT collecting system and LEFT ureter. The LEFT kidney is edematous and there is LEFT perirenal stranding. There are inflammatory changes around the proximal right ureter. This could represent a ruptured fornix. 2. The prostate is enlarged, greater than 6 cm. Recommend urology consult. Dictated and Authenticated by: Amado Poe MD. Ordering:EDU Chu MD
--- NOTE | 2019-06-16 17:13 | ED.GENADUL_ITS ---
Discharge Plan Disposition Patient Disposition: HOME Condition: Stable Discharge Details Chief Complaint: FlankPain Clinical Impression: Kidney stone on left side, Left ureteral stone Primary Care Provider: Jayro Koch ED Provider: Vlad Ashton Home Meds and New Rx's Prescriptions: New ondansetron 4 mg tablet,disintegrating 4 mg PO Q8H PRN (Reason: nausea and vomiting) Qty: 10 RF: 0 Continued tadalafil [Cialis] 5 mg tablet 5 mg PO DAILY Qty: 90 RF: 4 amlodipine 10 mg tablet 10 mg PO DAILY Qty: 90 RF: 4 losartan 50 MG tablet 50 mg PO DAILY RF: 0 aspirin 81 MG tablet,delayed release (DR/EC) 81 mg PO DAILY RF: 0 Changed tamsulosin [Flomax] 0.4 mg capsule 0.8 mg PO DAILY Qty: 28 RF: 0 Discharge Instructions Instructions: Kidney Stones (ED) Additional Instructions: Please use medication as prescribed and call urology office tomorrow morning for arrangement of follow-up appointment. Feel free to return to the emergency department for new or worsening symptoms otherwise continue to take [id number] pain medication as needed for pain control as discussed. Referrals: Jorge Obregon MD [ [facility] STAFF PHYSICIAN] - (Call the office tomorrow morning for arrangement of follow-up appointment) Discharge Data Discharge Date/Time-TO BE ENTERED AT DEPARTURE: 06/16/19 18:40 Medical Decision Making Left flank pain since 5 AM this morning along with some nausea and dry heaves. Physical exam is unremarkable, no CVA tenderness, no focal abdominal tenderness. Patient does state history of kidney stones with similar presentation. Given his history plan to check labs and CT imaging Review of labs does show hematuria, unremarkable CBC, CMP with slightly lowered GFR elevated anion gap BUN and creatinine otherwise nondiagnostic. Urinalysis shows hematuria otherwise no signs of acute infection. Patient initially refused pain medication but did state he was nauseous so he was given Zofran. Patient continued to have discomfort and inform nurses so 15 mg IV of Toradol was given Review of CT imaging and radiologist interpretation shows an enlarged prostate which is noted in patient's history otherwise a 3 mm stone in the left UVJ causing ureter dilatation. Did mention that patient did have an inflammatory change around proximal right ureter that could represent ruptured fornix. Patient has no symptoms on the right. Is not systemically ill in appearance. Spoke with Dr. Obregon in regards to these findings who recommended increasing Flomax from 0.4-0.8 daily and to call the office for arrangement of follow-up appointment. Return precautions discussed. After discussion of diagnosis and plan of care patient has no further needs, questions, or concerns and states clear understanding to return to the emergency department for any worsening symptoms. HPI General Mode of arrival: ambulatory . Date/Time Provider Initiated Documentation: 06/16/19 14:56 . Limitations to Documentation: no limitations . Information obtained by: patient and RN notes reviewed . History of Present Illness 68 year old M presents to the emergency department with the chief complaint of left flank pain, described as moderate, with intensity rated at 8. Quality is described as aching, and is localized to the abdomen (left f alnk). Patient started experiencing this hour(s) (10) and it has been constant. No relieving factors improve symptom(s), No exacerbating factors reported . Patient did receive the following treatments prior to arrival, none Related Data Home Medications Medication Instructions Recorded Confirmed aspirin 81 mg PO DAILY 06/06/13 06/16/19 losartan 50 mg PO DAILY tab-cap 03/05/18 06/16/19 amlodipine 10 mg tablet 10 mg PO DAILY #90 tab 04/04/19 06/16/19 tadalafil 5 mg tablet 5 mg PO DAILY #90 tab-cap 04/26/19 06/16/19 ondansetron 4 mg PO Q8H PRN #10 tab 06/16/19 tamsulosin [Flomax] 0.8 mg PO DAILY #28 tab-cap 06/16/19 Previous Rx's Medication Instructions Recorded amlodipine 10 mg tablet 10 mg PO DAILY #90 tab 04/04/19 tadalafil 5 mg tablet 5 mg PO DAILY #90 tab-cap 04/26/19 ondansetron 4 mg PO Q8H PRN #10 tab 06/16/19 tamsulosin [Flomax] 0.8 mg PO DAILY #28 tab-cap 06/16/19 Allergies Allergy/AdvReac Type Severity Reaction Status Date / Time atorvastatin AdvReac Intermediate heart skips Verified 06/16/19 14:53 citalopram AdvReac Mild dizzyness Verified 06/16/19 14:53 losartan AdvReac Mild dizzyness Verified 06/16/19 14:53 simvastatin [From Zocor] AdvReac Mild dizzyness Verified 06/16/19 14:53 General Stated Complaint: FlankPain IZABELLA: 3 Review of Systems Constitutional Denies chills, Denies fever(s) and Reports poor appetite Cardiovascular Denies chest pain and Denies dyspnea Respiratory Denies cough and Denies dyspnea Gastrointestinal Reports as per HPI, Denies abdominal pain, Denies melena, Denies change in bowel habits, Denies constipation, Denies diarrhea, Reports nausea and Reports vomiting Genitourinary Reports as per HPI, Denies hematuria, Denies difficulty urinating, Reports flank pain, Denies urinary hesitancy, Denies urinary incontinence and Denies urinary urgency Integumentary/Breasts Denies rash PFSH Medical History Back pain BPH (benign prostatic hyperplasia) Cervicalgia Colonic polyp Coronary artery disease Elevated PSA GERD (gastroesophageal reflux disease) HTN (hypertension) Hyperlipidemia IAN (obstructive sleep apnea) Psoriasis Surgical History Arthroplasty of knee colonoscopy (12/21/16) Colonoscopy - MAC (09/19/17) Colonoscopy planned (Acute ~09/24/18) Coronary Stent Extraction of cataract H/O colonoscopy (Chronic 09/19/17) Social History Smoking/Tobacco Use Status: Never Alcohol Intake: never Drug use: Never Substance use type: does not use Do you feel safe in your relationship?: Yes Exam Const General: cooperative Orientation: alert, awake and oriented x3 Resp Effort & Inspection: normal respiratory effort and able to speak in complete sentences Auscultation: clear to auscultation bilaterally Cardio Rate: regular rate Rhythm: regular rhythm Heart Sounds: S1 normal and S2 normal GI Inspection: normal to inspection Palpation: soft, no hepatosplenomegaly, not firm, no guarding, no masses, no pulsatile masses, not rigid, no splenomegaly and nontender Auscultation: normal bowel sounds Back/Spine/Pelvis Back: no CVA tenderness Neuro General: alert, awake, oriented x3, gait normal and moves all extremities Course Vital Signs Temperature 36.7 C 06/16/19 14:51 Pulse 73 06/16/19 14:51 Respiratory Rate 18 06/16/19 14:51 Blood Pressure 165/78 H 06/16/19 14:51 Pulse Oximetry 98 06/16/19 14:51 Temperature 36.7 C 06/16/19 14:51 Temperature Source Temporal Artery Scan 06/16/19 14:51 Pulse 73 06/16/19 14:51 Respiratory Rate 18 06/16/19 14:51 Blood Pressure 165/78 H 06/16/19 14:51 Blood Pressure Position Sitting 06/16/19 14:51 Pulse Oximetry 98 06/16/19 14:51 Oxygen Delivery Method Room Air 06/16/19 14:51 Oxygen Flow Rate 0 06/16/19 14:51 Pain Level 8 06/16/19 14:51 Lab/Test Results Lab/Test Results: Laboratory Tests Range/Units 06/16/19 06/16/19 06/16/19 15:14 15:14 15:14 WBC (4.4-10.8) k/cumm 10.27 RBC (4.50-6.00) m/cumm 4.65 Hgb (13.5-17.5) g/dL 14.0 Hct (40.0-50.0) % 38.9 L MCV (80-95) fL 83.7 MCH (27.0-33.0) pg 30.1 MCHC (32.0-36.0) g/dL 36.0 RDW (11.8-14.1) % 13.6 Plt Count (130-400) x1000/uL 247 MPV (8.0-11.0) fL 9.6 Immature Gran % 0.2 Neutrophils % 87.3 Lymphocytes % 7.2 Monocytes % 5.2 Eosinophils % 0.0 Basophils % 0.1 Absolute Neutrophils (1.2-6.7) k/cumm 8.97 H Absolute Lymphocytes (1.2-3.4) k/cumm 0.74 L Absolute Monocytes (0.11-0.7) k/cumm 0.53 Absolute Eosinophils (0.0-0.7) k/cumm 0.00 Absolute Basophils (0.0-0.2) k/cumm 0.01 Sodium (136-145) mmol/L 139 Potassium (3.5-5.1) mmol/L 3.6 Chloride (98-107) mmol/L 106 Carbon Dioxide (21.0-32.0) mmol/L 19.4 L Anion Gap (3-11) mmol/L 13.6 H BUN (7-18) mg/dL 23 H Creatinine (0.70-1.30) mg/dL 1.62 H Estimated GFR/1.73 m2 (mL/min/1.73m2) 42.46 Glucose (70-100) mg/dL 132 H Calcium (8.5-10.1) mg/dL 8.5 Total Bilirubin (0.2-1.0) mg/dL 0.8 AST (15-37) U/L 17 ALT (12-78) U/L 26 Alkaline Phosphatase (46-116) U/L 81 Total Protein (6.4-8.2) g/dL 7.6 Albumin (3.4-5.0) g/dL 4.1 Urine Color (Yellow) Yellow Urine Clarity (Clear) Clear Urine pH (5-8) 7.5 Ur Specific [place] (1.005-1.025) 1.015 Urine Protein (Negative) mg/dL Negative Urine Ketones (Negative) mg/dL Negative Urine Blood (Negative) Moderate H Urine Nitrite (Negative) Negative Urine Bilirubin (Negative) Negative Urine Urobilinogen (Up TO 0.2) EU/dL 0.2 Ur Leukocyte Esterase (Negative) Negative Urine RBC (0-2) 20-50 H Urine WBC (0-5) HPF 0-2 Ur Epithelial Cells (Negative) HPF Negative Urine Crystals (Negative) HPF Negative Urine Bacteria (Negative) HPF Negative Urine Casts (Negative) LPF Negative Urine Mucus (Negative) Negative Urine Other (Negative) Negative Ur Culture Indicated? No Urine Glucose (Negative) mg/dL Negative
[2019-06-16 18:28] VITALS: BP 150/94; PULSE 71; RESP 18; TEMP 37; O2SAT 97
--- NOTE | 2019-06-16 19:06 | NUR.NOTE ---
referral faxed to Urology Dr Obregon.Nursing Note:
== END 2019-06-16 18:40 | disposition home or self-care (01) ==
PROVIDERS: Emergency Provider Nurse Practitioner Family; PCP Physician Assistant Medical
DX: N20.1 Calculus of ureter (principal); N40.1 Benign prostatic hyperplasia with lower urinary tract symptoms
CPT/HCPCS: 36415; 80053; 96361; 96372; 96374; 99284; 74176; 81003; 81015; 85025; J1885; J2405

== ENCOUNTER 2019-09-02 15:14 | Outpatient (REF) | payer MEDICARE, OTHER, SELFPAY ==
[2019-09-02 22:10] LABS: Hemoglobin A1C 5.3 % (4.5-6.2)
[2019-09-02 22:26] LABS: Anion Gap 13.8 mmol/L (3-11); BUN 17 mg/dL (7-18); CO2 21.2 mmol/L (21.0-32.0); CREATININE 1.21 mg/dL (0.70-1.30); Calcium 8.7 mg/dL (8.5-10.1); Chloride 105 mmol/L (98-107); Estimated GFR 59.29 (mL/min/1.73m2); Glucose 100 mg/dL (70-100); Potassium 4.2 mmol/L (3.5-5.1); Sodium 140 mmol/L (136-145)
== END 2019-09-02 15:34 ==
LOC: NCHCN 15:14
PROVIDERS: PCP Physician Assistant Medical; Visit Provider Physician Assistant Medical
DX: R73.9 Hyperglycemia, unspecified (principal); I10 Essential (primary) hypertension
CPT/HCPCS: 80048; 83036

== ENCOUNTER 2019-09-11 01:16 | Outpatient (CLI) | payer MEDICARE, OTHER, SELFPAY ==
[2019-09-11] MEDS: Omnipaque 350 MG/ML 100 ML BTL IJ (15:07)
[2019-09-11] MEDS: Normal Saline Flush 10 ML SYR IVP (15:07)
--- NOTE | 2019-09-11 15:07 | DI.CT_ITS ---
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 COMPARISON: CT chest PE CTA from 11/10/2018 FINDINGS: The ascending aorta measures 4.1 cm in AP diameter compared with 4 cm on the prior examination. Ther e is no evidence of dissection of the aorta. Heart size is within normal limits. No pericardial eff usion is present. Coronary artery calcifications are present. The central pulmonary arteries are un remarkable. No pleural effusion or pneumothorax is identified. The tracheobronchial tree is unremar kable. The lungs are clear. No significant thoracic adenopathy is present. There are degenerative changes seen in the spine. Small hiatal hernia. There is a stable 1.5 cm left thyroid nodule. IMPRESSION: Mild dilatation of the thoracic ascending aorta to 4.1 cm.
== END 2019-09-11 01:36 ==
PROVIDERS: PCP Physician Assistant Medical; Visit Provider Physician Assistant Medical
DX: I71.2 Thoracic aortic aneurysm, without rupture (principal); E04.1 Nontoxic single thyroid nodule; K44.9 Diaphragmatic hernia without obstruction or gangrene
CPT/HCPCS: 71275; J3490

== ENCOUNTER 2019-11-07 12:32 | Emergency (ER) | payer MEDICARE, OTHER, SELFPAY ==
[2019-11-07] VITALS (14 sets, daily range): BP systolic 123–145; BP diastolic 71–97; PULSE 15–75; RESP 10–24; TEMP 36.4–36.9; O2SAT 96–100
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
== END 2019-11-07 15:15 | disposition home or self-care (01) ==
PROVIDERS: Emergency Provider Emergency Medicine; PCP Physician Assistant Medical
DX: S70.02XA Contusion of left hip, initial encounter (principal); S80.212A Abrasion, left knee, initial encounter; S29.092A Other injury of muscle and tendon of back wall of thorax, initial encounter; S20.222A Contusion of left back wall of thorax, initial encounter; M79.642 Pain in left hand; V03.10XA Pedestrian on foot injured in collision with car, pick-up truck or van in traffic accident, initial encounter; I10 Essential (primary) hypertension
CPT/HCPCS: 71101; 73562; 99284; 72040; 72072; 72170; 73130; 84484

== ENCOUNTER 2019-12-13 19:04 | Outpatient (REF) | payer MEDICARE, OTHER, SELFPAY ==
[2019-12-13 19:43] LABS: ALT 26 U/L (16-63); AST 18 U/L (15-37); Albumin 4.3 g/dL (3.4-5.0); Alkaline Phosphatase 93 U/L (46-116); Anion Gap 11.9 mmol/L (3-11); BUN 28 mg/dL (7-18); Bilirubin, Total 0.8 mg/dL (0.2-1.0); CO2 20.1 mmol/L (21.0-32.0); CREATININE 1.18 mg/dL (0.70-1.30); Calcium 8.4 mg/dL (8.5-10.1); Calculated LDL 174 mg/dL (<100); Chloride 106 mmol/L (98-107); Cholesterol 226 mg/dL (<200); Glucose 98 mg/dL (74-106); HDL Cholesterol 31 mg/dL (40-60); Sodium 138 mmol/L (136-145); Total Protein 7.4 g/dL (6.4-8.2); Triglyceride 106 mg/dL (<150)
== END 2019-12-13 19:24 ==
LOC: NCHCN 19:04
PROVIDERS: PCP Physician Assistant Medical; Visit Provider Physician Assistant Medical
DX: E78.5 Hyperlipidemia, unspecified (principal)
CPT/HCPCS: 80053; 80061

== ENCOUNTER → 2020-04-13 15:36 | Outpatient (BNVA) | payer MEDICARE, OTHER, SELFPAY | PROVIDERS: PCP Physician Assistant Medical; Referring Provider Physician Assistant Medical; Visit Provider Internal Medicine Cardiovascular Disease | DX: I25.10 Atherosclerotic heart disease of native coronary artery without angina pectoris (principal); I10 Essential (primary) hypertension | CPT/HCPCS: 99212; 99441 ==

== ENCOUNTER → 2020-04-28 08:46 | Outpatient (BNVA) | payer MEDICARE, OTHER, SELFPAY | PROVIDERS: PCP Physician Assistant Medical; Visit Provider Urology | DX: N40.1 Benign prostatic hyperplasia with lower urinary tract symptoms (principal); N13.8 Other obstructive and reflux uropathy | CPT/HCPCS: 99213 ==

== ENCOUNTER 2020-04-28 09:18 | Outpatient (CLI) | payer MEDICARE, OTHER, SELFPAY ==
[2020-04-29 09:16] LABS: PSA, Screening 4.6 ng/mL (0.0-6.5)
== END 2020-04-28 09:38 ==
PROVIDERS: PCP Physician Assistant Medical; Visit Provider Urology
DX: N40.1 Benign prostatic hyperplasia with lower urinary tract symptoms (principal); N13.8 Other obstructive and reflux uropathy; Z12.5 Encounter for screening for malignant neoplasm of prostate
CPT/HCPCS: 84153

== ENCOUNTER 2020-05-06 11:03 | Outpatient (CLI) | payer MEDICARE, OTHER, SELFPAY ==
--- NOTE | 2020-05-06 10:30 | DI.RAD_ITS ---
EXAM: XR KNEE LT 2V AP,LAT CLINICAL HISTORY: pain TECHNIQUE: COMPARISON: CR XR KNEE LT 3V AP,LAT,JOVAN from 11/07/2019 FINDINGS: Two views were obtained. There is a small superior patellar enthesophyte and slight marginal osteoph yte formation at the patellofemoral joint. There is an enthesophyte of the anterior tibial tubercle. Slight marginal osteophyte noted associated with medial and lateral tibiofemoral joints as well car tilaginous joint spaces appear grossly well maintained on this limited series. IMPRESSION: Minimal degenerative changes as described above.
== END 2020-05-06 11:23 ==
PROVIDERS: PCP Physician Assistant Medical; Referring Provider Physician Assistant Medical; Visit Provider Orthopaedic Surgery
DX: M25.562 Pain in left knee (principal); M25.762 Osteophyte, left knee; M17.12 Unilateral primary osteoarthritis, left knee; G56.22 Lesion of ulnar nerve, left upper limb
CPT/HCPCS: 99201; 99213; 73560

== ENCOUNTER 2020-09-15 01:30 | Outpatient (CLI) | payer MEDICARE, OTHER, SELFPAY ==
--- NOTE | 2020-09-15 | DI.CT_ITS ---
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 TECHNIQUE: Imaging Protocol: Axial CT angiography was performed with multi-slice acquisition and mu lti-planar and/or 3D reconstructions. CONTRAST MATERIAL: Intravenous: Omnipaque 350 Contrast volume:100 mL COMPARISON: CT CT THORAX CTA from 09/11/2019 FINDINGS: Pulmonary Arteries: No evidence of filling defect to suggest pulmonary emboli. Tracheobronchial tree: Patent where visualized. Mediastinum and Erlinda: No dominant adenopathy or fluid collection. Small hiatal hernia. Pulmonary parenchyma: No consolidation or dominant measurable mass. No architectural distortion. Pleura: No effusion or pneumothorax. Heart: Mild cardiomegaly. Mild coronary artery calcification. No significant pericardial effusion. Aorta: Stable 4.1 cm diameter thoracic ascending aorta. Upper abdomen: Unremarkable. Bones: Degenerative changes. Soft tissues: Unremarkable. IMPRESSION: Stable 4.1 cm diameter thoracic ascending aorta. RADIATION DOSE DELIVERED: 615.65mGy.cm Total DLP 615.65mGy.cm Total DLP DATA REPOSITORY: All CT scans at this facility are submitted to the National Radiology Data Registry (NRDR) Dose Index Registry (DIR) with the [employer] (ACR). RADIATION OPTIMIZATION: All CT scans at this facility use at least one of these dose optimization te chniques: automated exposure control; mA and/or kV adjustment per patient size (includes targeted exa ms where dose is matched to clinical indication); or iterative reconstruction.
[2020-09-15 08:47] LABS: CREATININE 1.14 mg/dL (0.70-1.30)
[2020-09-15] MEDS: Omnipaque 350 MG/ML 100 ML BTL IJ (09:21)
[2020-09-15] MEDS: Normal Saline Flush 10 ML SYR IVP (09:22)
== END 2020-09-15 01:50 ==
PROVIDERS: PCP Physician Assistant Medical; Visit Provider Physician Assistant Medical
DX: I71.2 Thoracic aortic aneurysm, without rupture (principal)
CPT/HCPCS: 71275; 82565; J3490

== ENCOUNTER → 2020-11-09 09:50 | Outpatient (BNVA) | payer MEDICARE, OTHER, SELFPAY | PROVIDERS: PCP Physician Assistant Medical; Referring Provider Physician Assistant Medical; Visit Provider Internal Medicine Cardiovascular Disease | DX: I25.10 Atherosclerotic heart disease of native coronary artery without angina pectoris (principal); R00.2 Palpitations; I10 Essential (primary) hypertension | CPT/HCPCS: 99214 ==

== ENCOUNTER 2020-11-10 03:55 | Outpatient (RCR) | payer MEDICARE, OTHER, SELFPAY ==
--- NOTE | 2020-11-10 09:00 | HOLTER_ITS ---
APPROVED REPORT Exam Type: HOLTER MONITOR APPLICATION Reason for Test: palpitaions Patient Location: O Conclusion This is a 48-hour remote recorder ordered for indication of palpitations. ???The patient was in normal sinus rhythm for the majority of the recording with an average heart rat e of 66 bpm. ???There were 10 episodes of supraventricular tachycardia with the longest lasting 8 beats. There we re rare PACs. ???There were 0 episodes of ventricular tachycardia and rare PVCs. ???There were no episodes of atrial fibrillation, no pauses greater than 3 seconds and no evidence of high degree heart block. ???Patient reported events were associated with normal sinus rhythm as well as singular PVCs.
== END 2020-11-12 23:59 | disposition home or self-care (01) ==
LOC: RT 03:55
PROVIDERS: PCP Physician Assistant Medical; Visit Provider Internal Medicine Cardiovascular Disease
DX: R00.2 Palpitations (principal); I47.1 Supraventricular tachycardia
CPT/HCPCS: 93225; 93226

== ENCOUNTER 2020-11-16 09:24 | Outpatient (CLI) | payer MEDICARE, OTHER, SELFPAY | END 2020-11-16 09:44 | PROVIDERS: PCP Physician Assistant Medical; Referring Provider Internal Medicine Cardiovascular Disease; Visit Provider Internal Medicine Cardiovascular Disease | DX: R00.2 Palpitations (principal); I47.1 Supraventricular tachycardia | CPT/HCPCS: 93227 ==

== ENCOUNTER 2020-12-18 19:41 | Outpatient (REF) | payer MEDICARE, OTHER, SELFPAY ==
[2020-12-18 16:12] LABS: Anion Gap 13.8 mmol/L (3-11); BUN 15 mg/dL (7-18); CO2 22.2 mmol/L (21.0-32.0); Calculated LDL 152 mg/dL (<100); Chloride 104 mmol/L (98-107); Cholesterol 225 mg/dL (<200); Glucose 99 mg/dL (74-106); HDL Cholesterol 37 mg/dL (40-60); Potassium 4.5 mmol/L (3.5-5.1); Sodium 140 mmol/L (136-145); TSH (W/Ref FT4) 3.17 uIU/mL (0.36-3.74); Triglyceride 183 mg/dL (<150)
[2020-12-18 16:14] LABS: Hemoglobin A1C 5.3 % (<5.7)
== END 2020-12-18 19:42 | disposition home or self-care (01) ==
LOC: NCHCN 19:41
PROVIDERS: PCP Physician Assistant Medical; Visit Provider Physician Assistant Medical
DX: R79.89 Other specified abnormal findings of blood chemistry (principal); I10 Essential (primary) hypertension; E78.5 Hyperlipidemia, unspecified
CPT/HCPCS: 80048; 80061; 83036; 84443

== ENCOUNTER → 2021-04-29 10:46 | Outpatient (BNVA) | payer MEDICARE, OTHER, SELFPAY | PROVIDERS: PCP Physician Assistant Medical; Referring Provider Physician Assistant Medical; Visit Provider Internal Medicine Cardiovascular Disease | DX: I25.10 Atherosclerotic heart disease of native coronary artery without angina pectoris (principal); I10 Essential (primary) hypertension | CPT/HCPCS: 99214; 99213 ==

== ENCOUNTER 2021-07-20 19:58 | Outpatient (REF) | payer MEDICARE, OTHER, SELFPAY ==
[2021-07-20 21:40] LABS: ALT 34 U/L (16-63); AST 17 U/L (15-37); Albumin 4.4 g/dL (3.4-5.0); Alkaline Phosphatase 88 U/L (46-116); BUN 21 mg/dL (7-18); Bilirubin, Total 0.7 mg/dL (0.2-1.0); CREATININE 1.2 mg/dL (0.70-1.30); Calcium 8.7 mg/dL (8.5-10.1); Calculated LDL 149 mg/dL (<100); Chloride 106 mmol/L (98-107); Cholesterol 202 mg/dL (<200); Estimated GFR 59.51 (mL/min/1.73m2); Glucose 95 mg/dL (74-106); HDL Cholesterol 37 mg/dL (40-60); Potassium 4.3 mmol/L (3.5-5.1); Sodium 139 mmol/L (136-145); Total Protein 7.4 g/dL (6.4-8.2); Triglyceride 84 mg/dL (<150)
[2021-07-21 18:09] LABS: PSA, Screening 6.3 ng/mL (0.0-6.5)
== END 2021-07-20 19:59 | disposition home or self-care (01) ==
LOC: NCHCN 19:58
PROVIDERS: PCP Physician Assistant Medical; Visit Provider Physician Assistant Medical
DX: I25.10 Atherosclerotic heart disease of native coronary artery without angina pectoris (principal); N40.0 Benign prostatic hyperplasia without lower urinary tract symptoms; Z00.8 Encounter for other general examination
CPT/HCPCS: 80053; 80061; 84153

== ENCOUNTER → 2021-10-15 10:30 | Outpatient (BNVA) | payer MEDICARE, OTHER, SELFPAY | PROVIDERS: PCP Physician Assistant Medical; Referring Provider Physician Assistant Medical; Visit Provider Internal Medicine Cardiovascular Disease | DX: I25.10 Atherosclerotic heart disease of native coronary artery without angina pectoris (principal); I10 Essential (primary) hypertension | CPT/HCPCS: 99214; 99213 ==

== ENCOUNTER → 2022-04-15 10:23 | Outpatient (BNVA) | payer MEDICARE, OTHER, SELFPAY | PROVIDERS: PCP Physician Assistant Medical; Referring Provider Physician Assistant Medical; Visit Provider Internal Medicine Cardiovascular Disease | DX: I25.10 Atherosclerotic heart disease of native coronary artery without angina pectoris (principal); R00.2 Palpitations; I10 Essential (primary) hypertension | CPT/HCPCS: 99214; 99213 ==

== ENCOUNTER 2022-07-22 20:03 | Outpatient (REF) | payer MEDICARE, OTHER, SELFPAY ==
[2022-07-22 15:50] LABS: ALT 32 U/L (16-63); AST 24 U/L (15-37); Albumin 4.3 g/dL (3.4-5.0); Alkaline Phosphatase 76 U/L (46-116); BUN 22 mg/dL (7-18); Bilirubin, Total 0.9 mg/dL (0.2-1.0); CREATININE 1.3 mg/dL (0.70-1.30); Calcium 8.8 mg/dL (8.5-10.1); Calculated LDL 140 mg/dL (<100); Chloride 103 mmol/L (98-107); Cholesterol 201 mg/dL (<200); Estimated GFR 58.01 (mL/min/1.73m2); Glucose 99 mg/dL (74-106); HDL Cholesterol 42 mg/dL (40-60); Potassium 3.6 mmol/L (3.5-5.1); Sodium 139 mmol/L (136-145); Triglyceride 98 mg/dL (<150)
[2022-07-22 22:42] LABS: PSA, Screening 6.8 ng/mL (<=6.5)
== END 2022-07-22 20:04 | disposition home or self-care (01) ==
LOC: NCHCN 20:03
PROVIDERS: PCP Physician Assistant Medical; Visit Provider Physician Assistant Medical
DX: R97.20 Elevated prostate specific antigen [PSA] (principal)
CPT/HCPCS: 80053; 80061; 84153

== ENCOUNTER → 2022-08-02 15:08 | Outpatient (BNVA) | payer MEDICARE, OTHER, SELFPAY | PROVIDERS: PCP Physician Assistant Medical; Referring Provider Physician Assistant Medical; Visit Provider Nurse Practitioner Gerontology | DX: R39.89 Other symptoms and signs involving the genitourinary system (principal); N40.1 Benign prostatic hyperplasia with lower urinary tract symptoms; N13.8 Other obstructive and reflux uropathy; R33.8 Other retention of urine | CPT/HCPCS: 51702; 51798; 99214 ==

== ENCOUNTER → 2022-09-01 03:01 | Outpatient (CLI) | payer MEDICARE, OTHER, SELFPAY ==
--- NOTE | 2022-09-01 08:45 | DI.CT_ITS ---
Exam(s) CT THORAX CTA EXAM: CT THORAX CTA CLINICAL HISTORY: THORACIC AORTIC ANEURYSM, I71.2. TECHNIQUE: Imaging Protocol: Axial CT angiography was performed with multi-slice acquisition and mu lti-planar and/or 3D reconstructions. CONTRAST MATERIAL: Intravenous: Omnipaque 350 Contrast volume:structured data in ml COMPARISON: CT CT THORAX CTA from 09/15/2020 FINDINGS: CT angiography of the chest was performed with intravenous infusion of 100 cc of Omnipaque 350. The lungs are clear. No pleural effusion. Tracheobronchial tree appears intact. No evidence of pulmonary embolic disease. Thoracic aorta is ectatic at 41 millimeters, no evidence o f dissection, major branch vessels appear intact. No mediastinal or hilar adenopathy. Images obtained through the upper abdomen show unremarkable appearance of the visualized portions of the liver, spleen, pancreas, adrenals, and kidneys. IMPRESSION: Mild ectasia of thoracic aorta at 41 millimeters, no evidence of pulmonary embolic disease. RADIATION DOSE DELIVERED: 494.31mGy.cm Total DLP 494.31mGy.cm Total DLP !Error CTDIvol DATA REPOSITORY: All CT scans at this facility are submitted to the National Radiology Data Registry (NRDR) Dose Index Registry (DIR) with the [employer] (ACR). RADIATION OPTIMIZATION: All CT scans at this facility use at least one of these dose optimization te chniques: automated exposure control; mA and/or kV adjustment per patient size (includes targeted exa ms where dose is matched to clinical indication); or iterative reconstruction.
[2022-09-01] MEDS: Omnipaque 350 MG/ML 500 ML BTL-Imaging package 100 ML IJ (08:47)
== END ==
PROVIDERS: PCP Physician Assistant Medical; Visit Provider Nurse Practitioner Family
DX: N40.1 Benign prostatic hyperplasia with lower urinary tract symptoms (principal); N13.8 Other obstructive and reflux uropathy; R33.8 Other retention of urine; R97.20 Elevated prostate specific antigen [PSA]
CPT/HCPCS: 71275; 99213

== ENCOUNTER → 2022-11-16 10:17 | Outpatient (BNVA) | payer MEDICARE, OTHER, SELFPAY | PROVIDERS: PCP Physician Assistant Medical; Referring Provider Physician Assistant Medical; Visit Provider Nurse Practitioner Gerontology | DX: N40.1 Benign prostatic hyperplasia with lower urinary tract symptoms (principal); N13.8 Other obstructive and reflux uropathy; R33.8 Other retention of urine; R97.20 Elevated prostate specific antigen [PSA] | CPT/HCPCS: 81003; 99214 ==

== ENCOUNTER 2022-11-16 14:52 | Outpatient (REF) | payer MEDICARE, OTHER, SELFPAY | END 2022-11-16 14:53 | disposition home or self-care (01) | LOC: LBN 14:52 | PROVIDERS: PCP Physician Assistant Medical; Visit Provider Nurse Practitioner Gerontology | DX: N40.1 Benign prostatic hyperplasia with lower urinary tract symptoms (principal); N13.8 Other obstructive and reflux uropathy | CPT/HCPCS: 87086 ==

== ENCOUNTER 2022-12-22 01:13 | Outpatient (CLI) | payer MEDICARE, OTHER, SELFPAY ==
--- NOTE | 2022-12-22 08:00 | DI.US_ITS ---
Exam(s) US RENAL EXAM: US RENAL CLINICAL HISTORY: elevated PVR,urinary retention,prostatic hyperplasia,r33.8,n40.1 TECHNIQUE: Ultrasound of both kidneys performed using standard protocol. COMPARISON: CT CT renal colic wo from 06/16/[address] THORAX CTA from 09/15/[address] THORAX CTA from 09/01/2022 FINDINGS: RIGHT KIDNEY: Measures 10.3 cm in length. No cysts evident. Normal cortical thickness and corticomedullary differen tiation .No solid masses No intrarenal calculi nor hydronephrosis. LEFT KIDNEY: Measures 11.3 cm in length. No cysts evident. Normal cortical thickness and corticomedullary differe ntiaion. No solids masses. No intrarenal calculi nor hydonephrosis. URINARY BLADDER: Prevoid volume is 837 cc Postvoid volume is 540 cc Abundant layering debris noted in the bladder. There is also bladder diverticulum evident measuring 2 x 1.2 cm. Ureterovesical jets: Right ureterovesical jet was identified. Left was not. Prostate gland: Appears enlarged and lobulated. IMPRESSION: 1. No significant ultrasound findings in the kidneys. No hydronephrosis. No significant thinning o f the cortical mantle. Both kidneys exhibit normal size. 2. Urinary bladder is significantly enlarged and with prominent postvoid residual of 540 cc in the b ladder. Also bladder diverticulum. Also abundant layering debris noted in the urinary bladder. The se findings may be related to outlet obstruction in this patient who has an enlarged enlarged and lob ulated prostate gland. DATA REPOSITORY:
== END 2022-12-22 01:33 ==
LOC: DI 01:14
PROVIDERS: PCP Physician Assistant Medical; Visit Provider Nurse Practitioner Gerontology
DX: N40.1 Benign prostatic hyperplasia with lower urinary tract symptoms (principal); R33.8 Other retention of urine
CPT/HCPCS: 76770

== ENCOUNTER → 2022-12-27 09:46 | Outpatient (BNVA) | payer MEDICARE, OTHER, SELFPAY | PROVIDERS: PCP Physician Assistant Medical; Referring Provider Physician Assistant Medical; Visit Provider Nurse Practitioner Gerontology | DX: N40.1 Benign prostatic hyperplasia with lower urinary tract symptoms (principal); N13.8 Other obstructive and reflux uropathy; R97.20 Elevated prostate specific antigen [PSA]; R33.8 Other retention of urine | CPT/HCPCS: 99213 ==

== ENCOUNTER 2023-01-17 10:45 | Outpatient (CLI) | payer MEDICARE, OTHER, SELFPAY ==
--- NOTE | 2023-01-17 10:45 | RT.EKG_ITS ---
APPROVED REPORT Exam: Resting ECG Reason for Exam: cad Patient Location: O HR:74 bpm ECG Measurements Heart Rate 74 AXIS [place] 180 P 18 QRSd 102 QRS -7 QT 421 T 23 QTc 467 Conclusion Sinus rhythm...normal P axis, V-rate 50- 99 Baseline wander in lead(s) V2 Normal Electrocardiogram
== END 2023-01-17 10:46 | disposition home or self-care (01) ==
LOC: DI.CARD 10:45
PROVIDERS: PCP Physician Assistant Medical; Visit Provider Internal Medicine Cardiovascular Disease
DX: R00.2 Palpitations (principal)
CPT/HCPCS: 93010

== ENCOUNTER → 2023-01-17 10:57 | Outpatient (BNVA) | payer MEDICARE, OTHER, SELFPAY | PROVIDERS: PCP Physician Assistant Medical; Visit Provider Internal Medicine Cardiovascular Disease | DX: I25.10 Atherosclerotic heart disease of native coronary artery without angina pectoris (principal); R00.2 Palpitations | CPT/HCPCS: 93005; 99213 ==

== ENCOUNTER 2023-03-29 03:04 | Outpatient (CLI) | payer MEDICARE, OTHER, SELFPAY | END 2023-03-29 03:05 | disposition home or self-care (01) | LOC: LBO 03:04 | PROVIDERS: PCP Physician Assistant Medical; Visit Provider Nurse Practitioner Gerontology | DX: N40.1 Benign prostatic hyperplasia with lower urinary tract symptoms (principal); N13.8 Other obstructive and reflux uropathy; Z12.5 Encounter for screening for malignant neoplasm of prostate | CPT/HCPCS: 36415; 84153 ==

== ENCOUNTER → 2023-05-10 09:45 | Outpatient (BNVA) | payer MEDICARE, OTHER, SELFPAY | PROVIDERS: PCP Physician Assistant Medical; Visit Provider Nurse Practitioner Gerontology | DX: N40.1 Benign prostatic hyperplasia with lower urinary tract symptoms (principal); R39.89 Other symptoms and signs involving the genitourinary system | CPT/HCPCS: 36415; 51798; 99214 ==

== ENCOUNTER 2023-05-10 10:40 | Outpatient (REF) | payer MEDICARE, OTHER, SELFPAY ==
[2023-05-10 11:15] LABS: CREATININE 1.1 mg/dL (0.70-1.30); Estimated GFR 70.88 (mL/min/1.73m2)
== END 2023-05-10 10:41 | disposition home or self-care (01) ==
LOC: LBN 10:40
PROVIDERS: PCP Physician Assistant Medical; Visit Provider Nurse Practitioner Gerontology
DX: N13.8 Other obstructive and reflux uropathy (principal); N40.1 Benign prostatic hyperplasia with lower urinary tract symptoms; R97.20 Elevated prostate specific antigen [PSA]
CPT/HCPCS: 82565

== ENCOUNTER → 2023-08-08 08:45 | Outpatient (BNVA) | payer MEDICARE, OTHER, SELFPAY | PROVIDERS: PCP Physician Assistant Medical; Referring Provider Physician Assistant Medical; Visit Provider Nurse Practitioner Gerontology | DX: N40.1 Benign prostatic hyperplasia with lower urinary tract symptoms (principal); N13.8 Other obstructive and reflux uropathy | CPT/HCPCS: 51798; 99214 ==

== ENCOUNTER → 2023-08-31 12:42 | Outpatient (BNVA) | payer MEDICARE, OTHER, SELFPAY | PROVIDERS: PCP Physician Assistant Medical; Referring Provider Physician Assistant Medical; Visit Provider Urology | DX: R97.20 Elevated prostate specific antigen [PSA] (principal) | CPT/HCPCS: 55700; 76942 ==

== ENCOUNTER 2023-08-31 13:48 | Outpatient (REF) | payer MEDICARE, OTHER, SELFPAY ==
--- NOTE | 2023-08-31 13:30 | PROST_PTH ---
PATIENT: Dominic Tam LOC: [facility] U#:[id number] AGE/SX: 73/M ROOM: RE08/31/[address]: Jorge Obregon MD : [id number] BED: DIS: 08/31/2023 SPEC #: [id number] RECD: 08/31/23 17:02 STATUS: [facility] #: [id number] PEDRO PABLO: 08/31/23 13:[address]: Jorge Obregon DEPT: Surgical Specimen RECD BY: María Marin ENTERED: 08/31/23 17:04 SP TYPE: PROST OTHR DR: Jayro Koch Tissues: 1 - PROSTATE NEEDLE BIOPSY 2 - PROSTATE NEEDLE BIOPSY 3 - PROSTATE NEEDLE BIOPSY 4 - PROSTATE NEEDLE BIOPSY 5 - PROSTATE NEEDLE BIOPSY 6 - PROSTATE NEEDLE BIOPSY 7 - PROSTATE NEEDLE BIOPSY 8 - PROSTATE NEEDLE BIOPSY 9 - PROSTATE NEEDLE BIOPSY 10 - PROSTATE NEEDLE BIOPSY 11 - PROSTATE NEEDLE BIOPSY 12 - PROSTATE NEEDLE BIOPSY Procedures: GROSS AND MICRO LEVEL 4 IMMUNOPEROXIDASE STAIN Comments: [id number]
== END 2023-08-31 13:49 | disposition home or self-care (01) ==
LOC: LBN 13:48
PROVIDERS: PCP Physician Assistant Medical; Visit Provider Urology
DX: C61 Malignant neoplasm of prostate (principal)
CPT/HCPCS: 55700; 88305; 88361

== ENCOUNTER 2023-09-01 19:54 | Outpatient (CLI) | payer MEDICARE, OTHER, SELFPAY ==
[2023-09-01 16:50] LABS: ALT 28 U/L (16-63); AST 21 U/L (15-37); Albumin 4.1 g/dL (3.4-5.0); Alkaline Phosphatase 75 U/L (46-116); Anion Gap 13.4 mmol/L (3-11); BUN 18 mg/dL (7-18); Bilirubin, Total 0.8 mg/dL (0.2-1.0); CO2 19.6 mmol/L (21.0-32.0); CREATININE 1.2 mg/dL (0.70-1.30); Calcium 8.9 mg/dL (8.5-10.1); Calculated LDL 136 mg/dL (<100); Chloride 106 mmol/L (98-107); Cholesterol 201 mg/dL (<200); Estimated GFR 63.46 (mL/min/1.73m2); Glucose 111 mg/dL (74-106); HDL Cholesterol 47 mg/dL (40-60); Potassium 4.1 mmol/L (3.5-5.1); Sodium 139 mmol/L (136-145); Total Protein 7.8 g/dL (6.4-8.2); Triglyceride 93 mg/dL (<150)
== END 2023-09-01 19:55 | disposition home or self-care (01) ==
LOC: NCHCN 19:55
PROVIDERS: PCP Physician Assistant Medical; Visit Provider Physician Assistant Medical
DX: I25.10 Atherosclerotic heart disease of native coronary artery without angina pectoris (principal)
CPT/HCPCS: 80053; 80061

== ENCOUNTER → 2023-09-12 14:44 | Outpatient (BNVA) | payer MEDICARE, OTHER, SELFPAY | PROVIDERS: PCP Physician Assistant Medical; Referring Provider Physician Assistant Medical; Visit Provider Urology | DX: C61 Malignant neoplasm of prostate (principal) | CPT/HCPCS: 99215 ==

== ENCOUNTER → 2023-10-04 02:27 | Outpatient (CLI) | payer MEDICARE, OTHER, SELFPAY ==
--- NOTE | 2023-10-04 07:45 | DI.NM_ITS ---
Exam(s) NM BONE SCAN WHOLE BODY GRP EXAM: NM BONE SCAN WHOLE BODY GRP CLINICAL HISTORY: ?mets,prostate ca,c61. TECHNIQUE: Injected Dose: 25 mCi Tc-99m MDP Delayed Images: 2-3 hours. COMPARISON: No exams were available for comparison FINDINGS: The urinary bladder is markedly distended which obscures visualization of portions of the pelvis, par ticularly sacrum. Symmetric axial uptake. Bilateral renal excretion is identified. No focal area of intense suspicious uptake is seen. Increased activity at the left 1st MTP joint, likely degenerative. Mildly increase d activity in the AC joints, also likely degenerative. IMPRESSION: 1. No evidence of metastatic disease. DATA REPOSITORY:
== END ==
PROVIDERS: PCP Physician Assistant Medical; Visit Provider Urology
DX: C61 Malignant neoplasm of prostate (principal)
CPT/HCPCS: 78306

== ENCOUNTER → 2023-10-10 10:43 | Outpatient (BNVA) | payer MEDICARE, OTHER, SELFPAY | PROVIDERS: PCP Physician Assistant Medical; Referring Provider Physician Assistant Medical; Visit Provider Urology | DX: C61 Malignant neoplasm of prostate (principal) | CPT/HCPCS: 99214 ==

== ENCOUNTER → 2024-03-07 04:01 | Outpatient (CLI) | payer MEDICARE, OTHER, SELFPAY ==
--- NOTE | 2024-03-07 | DI.US_ITS ---
Exam(s) US THYROID EXAM: US THYROID CLINICAL HISTORY: THYROID NODULE E04.1. TECHNIQUE: Ultrasound thyroid performed using standard protocol. COMPARISON: Prior ultrasound examination of 11/27/2018 was reviewed FINDINGS: Both thyroid lobes again exhibit normal size and homogeneous echotexture with the exception of the no dule described low in the left lobe. RIGHT THYROID LOBE: Measures 2.5 cm AP x 1.7 cm wide x 4.3 cm craniocaudal There are no significant focal findings in the right lobe. ISTHMUS: Normal thickness. There are no nodules in the isthmus. LEFT THYROID LOBE: Measures 2.2 cm AP x 1.4 wide x 1 cm craniocaudal Is again noted to contain a partially cystic/partially solid(predominately solid) nodule. This nodul e measures 1.9 cm greatest measurement (craniocaudal) which is identical to 2019. Measures 1.5 cm AP and 1.2 cm wide. Grading TiRads characteristics of this nodule are as follows: Composition: Mixed solid cystic-1 point Echogenicity: Solid components are isoechoic to surrounding thyroid gland-1 point Shape: Taller than wider in the transverse plane-3 points Margin: Smooth-0 points Echogenic Foci: Appears to contain punctate echogenic foci-3 points Total points for this nodule: 8 ACR Ti-Rads Category: 5 This TR 5 level nodule should undergo biopsy as it measures greater than 1 cm size. LYMPH NODES: There is no significant adenopathy. IMPRESSION: 1. Solitary nodule in the left thyroid which is a TiRads 5 suspicious nodule and which requires ultra sound-guided biopsy given that it measures greater than 1 cm. 2. There is no significant lymphadenopathy. DATA REPOSITORY:
== END ==
PROVIDERS: PCP Physician Assistant Medical; Visit Provider Physician Assistant Medical
DX: E04.1 Nontoxic single thyroid nodule (principal)
CPT/HCPCS: 76536

== ENCOUNTER 2024-03-14 09:38 | Emergency (ER) | payer MEDICARE, OTHER, SELFPAY ==
--- NOTE | 2024-03-14 09:45 | DI.CT_ITS ---
Exam(s) CT RENAL COLIC WO EXAM: CT RENAL COLIC WO CLINICAL HISTORY: right flank and rlq pain. TECHNIQUE: Imaging Protocol: Axial computed tomography images with coronal and sagittal reformatted images were created and reviewed. CONTRAST MATERIAL: Noncontrast COMPARISON: CT CT THORAX CTA from 09/01/2022 NM NM BONE SCAN WHOLE BODY GRP from 10/04/2023 FINDINGS: ABDOMEN: Lung Bases: No acute findings. Small hiatal hernia. Heart is mildly dilated. Liver: Normal attenuation. No measurable mass. Gallbladder and biliary tract: No radiodense calculus or dilation. Pancreas: Normal density, no calcifications or inflammatory process. Spleen: Normal. Kidneys: Normal size, contour and axis. Symmetric mild bilateral hydronephrosis which may be seconda ry to over distended bladder. No radiodense stones. Tiny hyperdense cyst right kidney. No suspiciou s masses seen. Adrenal glands: No masses seen. Abdominal Aorta: Abdominal portion non-dilated. Soft tissues: Unremarkable small fatty containing umbilical hernia. Edema on both sides of the anter ior abdominal wall, consistent with injection sites. Fatty containing left inguinal hernia. PELVIS: Bladder: Markedly distended, reaching the level of the umbilicus. Mild wall thickening. No visible mass. Bowel: No obstruction or bowel wall thickening. Appendix normal. Normal quantity of stool. Reproductive: Prostate markedly enlarged. Metallic seeds in place. Peritoneal cavity: No ascites, collection or mesenteric inflammatory response. Bones: Unremarkable small sclerotic focus in left ilium may represent a bone island. IMPRESSION: Markedly distended urinary bladder causing [id number] bilateral hydronephrosis. Enlarged prostate with radiation therapy seeds. Findings called to Dr. Rowell of the emergency department. RADIATION DOSE DELIVERED: 1,242.24mGy.cm Total DLP DATA REPOSITORY: All CT scans at this facility are submitted to the National Radiology Data Registry (NRDR) Dose Index Registry (DIR) with the [employer] (ACR). RADIATION OPTIMIZATION: All CT scans at this facility use at least one of these dose optimization te chniques: automated exposure control; mA and/or kV adjustment per patient size (includes targeted exa ms where dose is matched to clinical indication); or iterative reconstruction.
[2024-03-14 09:50] VITALS: BP 155/68; PULSE 67; RESP 18; O2SAT 99
[2024-03-14 10:20] LABS: Abs Immature Grans 0.02 10^3/uL (0.0-0.06); Absolute Basophil Count 0.02 10^3/uL (0.0-0.2); Absolute Eosinophil Count 0.02 10^3/uL (0.0-0.7); Absolute Lymphocyte Count 0.17 10^3/uL (1.2-3.4); Absolute Monocyte Count 0.28 10^3/uL (0.1-0.8); Absolute Neutrophil Count 5.61 10^3/uL (1.2-6.7); Basophils % 0.3 %; Eosinophils % 0.3 %; HCT 35.2 % (40.0-50.0); HGB 12.9 g/dL (13.5-17.5); Immature Grans % 0.3 %; Lymphocytes % 2.8 %; MCH 31.4 pg (27.0-33.0); MCHC 36.6 % (32.0-36.0); MCV 86 fL (80-95); MPV 9.3 fL (8.0-11.0); Monocytes % 4.6 %; Neutrophils % 91.7 %; Platelet Count 220 10^3/uL (130-400); RBC 4.11 10^6/uL (4.36-5.78); RDW 13.7 % (11.8-14.1); RDW-SD 42.2 fL; WBC 6.12 10^3/uL (4.4-10.8)
[2024-03-14 10:22] LABS: Bilirubin Negative (Negative); Blood Small (Negative); Clarity Clear (Clear); Glucose Negative (Negative); Ketones Negative (Negative); Leukocyte Esterase Negative (Negative); Nitrite Negative (Negative); Specific Gravity 1.025 (1.005-1.025); Urobilinogen 0.2 mg/dL (Up to 0.2); pH 5.5 (5-8)
[2024-03-14] MEDS: Ondansetron 4 MG/2 ML VIAL IVP (10:28)
[2024-03-14 10:31] LABS: Bacteria Negative HPF (Negative); C & S Indicated? No; Casts Negative LPF (Negative); Crystals Negative HPF (Negative); Epithelial Cells Rare HPF (Negative); Mucus Trace (Negative); WBC 0-2 HPF (0-5)
[2024-03-14 10:44] LABS: ALT 31 U/L (16-63); AST 21 U/L (15-37); Alkaline Phosphatase 75 U/L (46-116); Anion Gap 12.4 mmol/L (3-11); BUN 24 mg/dL (7-18); Bilirubin, Total 0.8 mg/dL (0.2-1.0); CO2 20.6 mmol/L (21.0-32.0); CREATININE 1.3 mg/dL (0.70-1.30); Calcium 8.5 mg/dL (8.5-10.1); Chloride 110 mmol/L (98-107); Estimated GFR 57.65 (mL/min/1.73m2); Glucose 146 mg/dL (74-106); Lipase 43 U/L (16-77); Potassium 3.6 mmol/L (3.5-5.1); Sodium 143 mmol/L (136-145); Total Protein 7.3 g/dL (6.4-8.2)
--- NOTE | 2024-03-14 11:10 | W.ED.GENAD ---
Discharge Plan Disposition Patient Disposition: Home Condition: Stable Discharge Details Clinical Impression: Enlarged prostate, Acute urinary retention Primary Care Provider: Jayro Koch ED Provider: Kilo Rowell Home Meds and New Rx's Prescriptions: Continued tamsulosin 0.4 mg capsule 0.8 mg PO DAILY Qty: 180 4RF amlodipine 10 mg tablet 10 mg PO DAILY Qty: 90 4RF ezetimibe 10 mg tablet 10 mg PO DAILY losartan 50 MG tablet 50 mg PO DAILY aspirin 81 MG tablet,delayed release (DR/EC) 81 mg PO DAILY Discharge Instructions Instructions: Urinary Retention in Men (ED), Bennett Catheter Placement and Care (ED) Additional Instructions: Please follow-up with urology in 2 weeks. Return to the ER immediately for any worsening or new concerning symptoms. Referrals: [facility] [Provider Group] HPI General Mode of arrival: ambulatory. Date/Time Provider Initiated Documentation: 03/14/24 09:44. Limitations to Documentation: no limitations. Information obtained by: patient. HPI Narrative: 1110 --73-year-old male with history of prostate cancer, status post recent radiation therapy, renal stone, here with chief complaint of abdominal pain. Patient notes right lower quadrant and right flank abdominal pain that started early this morning and has persisted. Pain is described as sharp and stabbing. He has associated difficulty urinating. He has associated nausea and dry heaving. No dysuria or hematuria. No fever. Related Data Home Medications Medication Instructions Recorded Confirmed aspirin 81 mg tablet,delayed 81 mg PO DAILY 06/06/13 03/14/24 release losartan 50 mg tablet 50 mg PO DAILY 03/05/18 03/14/24 amlodipine 10 mg tablet 10 mg PO DAILY #90 tabs 04/04/19 03/14/24 tamsulosin 0.4 mg capsule 0.8 mg (2 x 0.4 mg) PO DAILY #180 04/28/20 03/14/24 caps ezetimibe 10 mg tablet 10 mg PO DAILY 10/15/21 03/14/24 Previous Rx's Medication Instructions Recorded amlodipine 10 mg tablet 10 mg PO DAILY #90 tabs 04/04/19 tamsulosin 0.4 mg capsule 0.8 mg (2 x 0.4 mg) PO DAILY #180 04/28/20 caps Allergies Allergy/AdvReac Type Severity Reaction Status Date / Time atorvastatin AdvReac Intermediate heart skips Verified 03/14/24 09:54 citalopram AdvReac Mild dizzyness Verified 03/14/24 09:54 losartan AdvReac Mild dizzyness Verified 03/14/24 09:54 simvastatin [From Zocor] AdvReac Mild dizzyness Verified 03/14/24 09:54 General Stated Complaint: Urinary IZABELLA: 3 Review of Systems Gastrointestinal Gastrointestinal: Reports as per HPI and Reports nausea Genitourinary Genitourinary: Reports as per HPI Exam Const General: cooperative and no acute distress HENDC Head: normocephalic and atraumatic Eyes Conjunctivae: normal conjunctivae Sclera: normal sclerae Resp Auscultation: clear to auscultation bilaterally, no rales, no rhonchi and no wheezes Cardio Rate: regular rate and not tachycardic Rhythm: regular rhythm GI Palpation: soft, not firm, no guarding, no masses, not rigid and nontender General: CVA tenderness on the right Skin General skin exam: no rashes or lesions noted Neuro General: patient alert, patient awake and tone normal Extrem General: no edema Course Vital Signs Vital signs: Vital Signs Pulse 67 03/14/24 09:50 Respiratory Rate 18 03/14/24 09:50 Blood Pressure 155/68 H 03/14/24 09:50 Pulse Oximetry 99 03/14/24 09:50 Pulse 67 03/14/24 09:50 Respiratory Rate 18 03/14/24 09:50 Respiratory Effort Normal, Non-Labored 03/14/24 09:53 Blood Pressure 155/68 H 03/14/24 09:50 Blood Pressure Position Sitting 03/14/24 09:50 Pulse Oximetry 99 03/14/24 09:50 Oxygen Delivery Method Room Air 03/14/24 09:50 Oxygen Flow Rate 0 03/14/24 09:50 Pain Level 2 03/14/24 09:50 Lab/Test Results Lab/Test Results: Laboratory Tests Range/Units 03/14/24 10:10 WBC (4.4-10.8) 10^3/uL 6.12 RBC (4.36-5.78) 10^6/uL 4.11 L Hgb (13.5-17.5) g/dL 12.9 L Hct (40.0-50.0) % 35.2 L MCV (80-95) fL 86 MCH (27.0-33.0) pg 31.4 MCHC (32.0-36.0) % 36.6 H RDW (11.8-14.1) % 13.7 Plt Count (130-400) 10^3/uL 220 MPV (8.0-11.0) fL 9.3 Immature Gran % % 0.3 Neutrophils % % 91.7 Lymphocytes % % 2.8 Monocytes % % 4.6 Eosinophils % % 0.3 Basophils % % 0.3 Nucleated RBC % (0.0-0.3) % 0.0 Absolute Neutrophils (1.2-6.7) 10^3/uL 5.61 Absolute Lymphocytes (1.2-3.4) 10^3/uL 0.17 L Absolute Monocytes (0.1-0.8) 10^3/uL 0.28 Absolute Eosinophils (0.0-0.7) 10^3/uL 0.02 Absolute Basophils (0.0-0.2) 10^3/uL 0.02 Sodium (136-145) mmol/L 143 Potassium (3.5-5.1) mmol/L 3.6 Chloride (98-107) mmol/L 110 H Carbon Dioxide (21.0-32.0) mmol/L 20.6 L Anion Gap (3-11) mmol/L 12.4 H BUN (7-18) mg/dL 24 H Creatinine (0.70-1.30) mg/dL 1.3 Est GFR (CKD-EPI 2020) (mL/min/1.73m2) 57.65 Glucose (74-106) mg/dL 146 H Calcium (8.5-10.1) mg/dL 8.5 Total Bilirubin (0.2-1.0) mg/dL 0.8 AST (15-37) U/L 21 ALT (16-63) U/L 31 Alkaline Phosphatase (46-116) U/L 75 Total Protein (6.4-8.2) g/dL 7.3 Albumin (3.4-5.0) g/dL 4.0 Lipase (16-77) U/L 43 Urine Color (Yellow) Yellow Urine Clarity (Clear) Clear Urine pH (5-8) 5.5 Ur Specific [place] (1.005-1.025) 1.025 Urine Protein (Neg-Trace) mg/dL Negative Urine Ketones (Negative) mg/dL Negative Urine Blood (Negative) Small H Urine Nitrite (Negative) Negative Urine Bilirubin (Negative) Negative Urine Urobilinogen (Up to 0.2) mg/dL 0.2 Ur Leukocyte Esterase (Negative) Negative Urine RBC (0-2) HPF 10-20 H Urine WBC (0-5) HPF 0-2 Ur Epithelial Cells (Negative) HPF Rare Urine Crystals (Negative) HPF Negative Urine Bacteria (Negative) HPF Negative Urine Casts (Negative) LPF Negative Urine Mucus (Negative) Trace Ur Culture Indicated? No Urine Glucose (Negative) mg/dL Negative Medical Decision Making 1115??73-year-old male with history of prostate cancer, status post recent radiation therapy, renal stones, here with right flank pain since this AM with associated decreased urinary output. Concern for impacted renal stone vs obstructive prostate enlargement post radiation. CT of the abd pelv to assess for acute surgical process. -- CT reviewed and interpreted by radiology: No appendicitis, no renal stone, distended bladder with bilateral hydronephrosis. Significant prostatic enlargement. I consulted urology, patient was seen by Donna Erazo NP, urinary catheter was placed. Plan for follow-up with urology in 2 weeks. Usual customary discharge instructions reviewed with the patient. Lab Data Lab results reviewed: Yes I reviewed the patient's lab results. Labs: Laboratory Tests Range/Units 03/14/24 10:10 WBC (4.4-10.8) 10^3/uL 6.12 RBC (4.36-5.78) 10^6/uL 4.11 L Hgb (13.5-17.5) g/dL 12.9 L Hct (40.0-50.0) % 35.2 L MCV (80-95) fL 86 MCH (27.0-33.0) pg 31.4 MCHC (32.0-36.0) % 36.6 H RDW (11.8-14.1) % 13.7 Plt Count (130-400) 10^3/uL 220 MPV (8.0-11.0) fL 9.3 Immature Gran % % 0.3 Neutrophils % % 91.7 Lymphocytes % % 2.8 Monocytes % % 4.6 Eosinophils % % 0.3 Basophils % % 0.3 Nucleated RBC % (0.0-0.3) % 0.0 Absolute Neutrophils (1.2-6.7) 10^3/uL 5.61 Absolute Lymphocytes (1.2-3.4) 10^3/uL 0.17 L Absolute Monocytes (0.1-0.8) 10^3/uL 0.28 Absolute Eosinophils (0.0-0.7) 10^3/uL 0.02 Absolute Basophils (0.0-0.2) 10^3/uL 0.02 Sodium (136-145) mmol/L 143 Potassium (3.5-5.1) mmol/L 3.6 Chloride (98-107) mmol/L 110 H Carbon Dioxide (21.0-32.0) mmol/L 20.6 L Anion Gap (3-11) mmol/L 12.4 H BUN (7-18) mg/dL 24 H Creatinine (0.70-1.30) mg/dL 1.3 Est GFR (CKD-EPI 2020) (mL/min/1.73m2) 57.65 Glucose (74-106) mg/dL 146 H Calcium (8.5-10.1) mg/dL 8.5 Total Bilirubin (0.2-1.0) mg/dL 0.8 AST (15-37) U/L 21 ALT (16-63) U/L 31 Alkaline Phosphatase (46-116) U/L 75 Total Protein (6.4-8.2) g/dL 7.3 Albumin (3.4-5.0) g/dL 4.0 Lipase (16-77) U/L 43 Urine Color (Yellow) Yellow Urine Clarity (Clear) Clear Urine pH (5-8) 5.5 Ur Specific [place] (1.005-1.025) 1.025 Urine Protein (Neg-Trace) mg/dL Negative Urine Ketones (Negative) mg/dL Negative Urine Blood (Negative) Small H Urine Nitrite (Negative) Negative Urine Bilirubin (Negative) Negative Urine Urobilinogen (Up to 0.2) mg/dL 0.2 Ur Leukocyte Esterase (Negative) Negative Urine RBC (0-2) HPF 10-20 H Urine WBC (0-5) HPF 0-2 Ur Epithelial Cells (Negative) HPF Rare Urine Crystals (Negative) HPF Negative Urine Bacteria (Negative) HPF Negative Urine Casts (Negative) LPF Negative Urine Mucus (Negative) Trace Ur Culture Indicated? 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) Knee pain, left (Acute) Diverticulosis (Acute) S/P colonoscopy with polypectomy (Acute ~09/24/18) Colorectal polyps (Acute) Tubulovillous adenoma of colon (Acute 12/21/16) and again on 09/19/17, rec repeat in one year Right inguinal pain (Acute 12/09/16) BPH w urinary obs/LUTS (Acute 12/09/16) Medical History (Updated 03/14/24 @ 11:58 by Kilo Rowell MD) Colonic polyp GERD (gastroesophageal reflux disease) Cervicalgia Psoriasis Hyperlipidemia Back pain Elevated PSA IAN (obstructive sleep apnea) BPH (benign prostatic hyperplasia) Surgical History Colonoscopy planned (~09/24/18) Dr Rogers: Multiple polyps H/O colonoscopy (09/19/17) Dr Lelia Alexander - tubulovillous adenoma, recommend repeat in one year colonoscopy (12/21/16) Coronary Stent 2017 Colonoscopy - MAC (09/19/17) Extraction of cataract Arthroplasty of knee Social History Smoking/Tobacco Use Status: Never Smoking risk assessment performed?: Yes Alcohol Intake: never Drug use: Never Substance use type: does not use Current gender identity: male Do you feel safe in your relationship?: Yes
[2024-03-14 11:42] VITALS: BP 155/68; PULSE 67; RESP 18; O2SAT 99
--- NOTE | 2024-03-14 12:03 | NUR.NOTE ---
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 Pt states he feels better and expresses understanding with plan to plug pardo in 48hours. Plug supplied by this information writer.
[2024-03-14 12:19] VITALS: BP 148/64; PULSE 64; RESP 18; TEMP 36.5; O2SAT 99
--- NOTE | 2024-03-14 12:26 | UCONE_ITS ---
Date of service: 03/14/24 Time of Service: 12:00 Assessment and Plan Assessment and plan (1) Acute urinary retention: Status: Acute Assessment and plan: Pardo catheter was placed. See bladder catheter insertion section for more information. Patient is to have continuous drainage for the next 48 hours then he may switch over to plugging and unplugging the catheter every 4 hours or sooner if he feels that sensation he needs to void. Asked that he call the clinic for a void trial. Recommend he have his void trial in 2 weeks from today. Patient expresses understanding. Information was relayed to ER provider for patient to be discharged. Dictation was done by [employer] voice recognition. Errors may be present within the note. (2) Prostate cancer: Status: Chronic (3) Hydronephrosis: Status: Acute History of Present Illness Narrative: Dominic is a 73-year-old male who was identified as having intermittent risk adenocarcinoma of the prostate. He has been working with radiation oncology and as of just this past Monday he completed his 28-day course of radiation treatment. Patient notes things are going well until this last treatment when he started to find some slowing within his voiding. He denies any gross hematuria or dysuria. He is not having fevers or chills. He does express some right flank pain as well as nausea when he arrived to the emergency room. Emergency room provider called for consult in regards to this individual. Imaging noted that he had a distended bladder as well as hydronephrosis. Request was for catheter placement. 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) Knee pain, left (Acute) Diverticulosis (Acute) S/P colonoscopy with polypectomy (Acute ~09/24/18) Colorectal polyps (Acute) Tubulovillous adenoma of colon (Acute 12/21/16) and again on 09/19/17, rec repeat in one year Right inguinal pain (Acute 12/09/16) BPH w urinary obs/LUTS (Acute 12/09/16) Medical History (Updated 03/14/24 @ 12:35 by Donna Erazo DNP) Colonic polyp GERD (gastroesophageal reflux disease) Cervicalgia Psoriasis Hyperlipidemia Back pain Elevated PSA IAN (obstructive sleep apnea) BPH (benign prostatic hyperplasia) Surgical History Colonoscopy planned (~09/24/18) Dr Rogers: Multiple polyps H/O colonoscopy (09/19/17) Dr Lelia Alexander - tubulovillous adenoma, recommend repeat in one year colonoscopy (12/21/16) Coronary Stent 2016 Colonoscopy - MAC (09/19/17) Extraction of cataract Arthroplasty of knee Social History Smoking/Tobacco Use Status: Never Smoking risk assessment performed?: Yes Alcohol Intake: never Drug use: Never Substance use type: does not use Current gender identity: male Do you feel safe in your relationship?: Yes Exam Const Orientation: alert, awake and oriented x3 Eyes Sclera: sclerae normal Resp Effort & Inspection: normal respiratory effort GI Inspection: normal to inspection Penis: normal penis and foreskin retracts Meatus: meatus normal Results Last Vital Signs Temp 97.7 F 03/14/24 12:19 Pulse 64 03/14/24 12:19 Resp 18 03/14/24 12:19 BP 148/64 H 03/14/24 12:19 Pulse Ox 99 03/14/24 12:19 Labs 03/14/24 10:10 03/14/24 10:10 Labs: Laboratory Results - last 24 hr 03/14/24 10:10 WBC 6.12 RBC 4.11 L Hgb 12.9 L Hct 35.2 L MCV 86 MCH 31.4 MCHC 36.6 H RDW 13.7 Plt Count 220 MPV 9.3 Immature Gran % 0.3 Neutrophils % 91.7 Lymphocytes % 2.8 Monocytes % 4.6 Eosinophils % 0.3 Basophils % 0.3 Nucleated RBC % 0.0 Absolute Neutrophils 5.61 Absolute Lymphocytes 0.17 L Absolute Monocytes 0.28 Absolute Eosinophils 0.02 Absolute Basophils 0.02 Sodium 143 Potassium 3.6 Chloride 110 H Carbon Dioxide 20.6 L Anion Gap 12.4 H BUN 24 H Creatinine 1.3 Est GFR (CKD-EPI 2020) 57.65 Glucose 146 H Calcium 8.5 Total Bilirubin 0.8 AST 21 ALT 31 Alkaline Phosphatase 75 Total Protein 7.3 Albumin 4.0 Lipase 43 Urine Color Yellow Urine Clarity Clear Urine pH 5.5 Ur Specific [place] 1.025 Urine Protein Negative Urine Ketones Negative Urine Blood Small H Urine Nitrite Negative Urine Bilirubin Negative Urine Urobilinogen 0.2 Ur Leukocyte Esterase Negative Urine RBC 10-20 H Urine WBC 0-2 Ur Epithelial Cells Rare Urine Crystals Negative Urine Bacteria Negative Urine Casts Negative Urine Mucus Trace Ur Culture Indicated? No Urine Glucose Negative Imaging Abdomen CT scan report/results: report reviewed and image reviewed Insert Bladder Catheter Procedure performed by: Donna Erazo Indication for procedure: Yes Informed consent given: Yes Position of patient: supine Sterilizing agent: Yes (Betadine) Type of anesthesia: topical gel Catheter size (Fr): 16 Catheter type: pardo Lubrication: Yes Catheter inserted: with difficulty Volume instilled into catheter balloon: 10cc Urine color: yellow Urine clarity: clear Clots present: No Irrigation: No Catheter attached to: bedside drainage bag Patient tolerated procedures: well Complications: No Text: 2 Liters of urine in total off. Pardo was clamped at 1 L intervals. Minimal urine after unclamping after second liter.
== END 2024-03-14 12:21 | disposition home or self-care (01) ==
PROVIDERS: Emergency Provider Student in an Organized Health Care Education/Training Program; PCP Physician Assistant Medical
DX: N13.30 Unspecified hydronephrosis; N40.1 Benign prostatic hyperplasia with lower urinary tract symptoms; R33.8 Other retention of urine; C61 Malignant neoplasm of prostate; Z92.3 Personal history of irradiation; Z79.82 Long term (current) use of aspirin
CPT/HCPCS: 80053; 83690; 96365; 96375; 99284; 74176; 81003; 81015; 85025; J0131; J2405

== ENCOUNTER → 2024-03-28 07:45 | Outpatient (BNVA) | payer MEDICARE, OTHER, SELFPAY | PROVIDERS: PCP Physician Assistant Medical; Referring Provider Physician Assistant Medical; Visit Provider Nurse Practitioner Gerontology | DX: C61 Malignant neoplasm of prostate (principal); R33.8 Other retention of urine | CPT/HCPCS: 99213 ==

== ENCOUNTER 2024-04-01 05:25 | Outpatient (CLI) | payer MEDICARE, OTHER, SELFPAY ==
[2024-04-05 00:55] LABS: Testosterone, Total 7.2 ng/dL (240-950)
== END 2024-04-01 05:26 | disposition home or self-care (01) ==
LOC: LBO 05:25
PROVIDERS: PCP Physician Assistant Medical; Visit Provider Radiology Radiation Oncology
DX: C61 Malignant neoplasm of prostate (principal)
CPT/HCPCS: 36415; 84153; 84403

== ENCOUNTER → 2024-04-12 10:42 | Outpatient (BNVA) | payer MEDICARE, OTHER, SELFPAY | PROVIDERS: PCP Physician Assistant Medical; Referring Provider Physician Assistant Medical; Visit Provider Internal Medicine Cardiovascular Disease | DX: I25.10 Atherosclerotic heart disease of native coronary artery without angina pectoris (principal) | CPT/HCPCS: 99213 ==

== ENCOUNTER 2024-04-15 12:26 | Outpatient (REF) | payer MEDICARE, OTHER, SELFPAY | END 2024-04-15 12:27 | disposition home or self-care (01) | LOC: NCHCN 12:26 | PROVIDERS: PCP Physician Assistant Medical; Visit Provider Physician Assistant Medical | DX: R30.0 Dysuria (principal) | CPT/HCPCS: 87077; 87086; 87186 ==

== ENCOUNTER → 2024-04-22 01:55 | Outpatient (CLI) | payer MEDICARE, OTHER, SELFPAY ==
--- NOTE | 2024-04-22 07:30 | DI.NM_ITS ---
APPROVED REPORT Exam: Pharmacologic Patient Location: Out-Patient Room/Bed: Stress Nurse: Alessandra Wallace RN Ordering Provider:DEE COOK, Contact Number: BMI: 33.35 Baseline Rhythm: Sinus Bradycardia Indications: ESPINO, chest discomfort Medical History Medical History: CAD, PCI (2017), GERD, HLD, IAN Cardiac Medications: Aspirin, amlodipine, ezetimibe Allergies: Atorvastatin, citalopram, simvastatin Cardiac Risk Factors: Family hx, HTN, HLD Previous Cardiac Procedures: PCI x2 Pretest Chest Pain Characteristics: None Exercise History: Indeterminate Physical Disabilities: None Lung Sounds: Clear to auscultation Heart Sounds: Regular Stress Test Details Test: Pharmacologic stress testing performed using 0.4 mg of regadenoson per 5 mL given IV over 10 s econds. Reason for pharmacologic stress test: Significant artifact with movement . Nuclear Acquisition: Rest Tc-99m/Stress Tc-99m 1 day Rest Isotope: Tc-99m Sestamibi. Dose: 10.0 Date: 04/22/2024 Injection Time: 1110 Stress Isotope: Tc-99m Sestamibi. Dose: 30.0 Date: 04/22/2024 Injection Time: 1255 HR Resting HR Supine: 55 bpm Max Heart Rate (APMHR): 146.087940 bpm Target HR (85% APMHR): 124.026780 bpm Max HR Achieved: 82 bpm % of APMHR: 56.16 Recovery HR: 71 bpm BP Resting BP Supine: 98/48 mmHg Max BP: 116/58 mmHg Recovery BP: 116/58 mmHg ECG Resting ECG: Sinus Bradycardia Stress ECG: Sinus Rhythm ST Change: Nondiagnostic low heart rate Recovery ECG: Sinus Rhythm Recovery ST Change: Nondiagnostic low heart rate Clinical Stress Symptoms: None Angina Score: None Rate Pressure Product: 9512 Stress ECG Conclusion 1. Resting EKG showed poor R wave progression 2. Patient underwent testing using pharmacologic stress with regadenoson 3. Peak heart rate achieved was 56% of predicted for age 4. Electrocardiographic portion of the test was nondiagnostic 5. See MPI report Stress Test Summary STAGE HR BP SpO2 Symptoms NOTES Supine 55 98/48 1 min post Lexiscan injection 82 98/46 3 min post Lexiscan injection 73 110/60 6 min post Lexiscan injection 71 116/58 98 MPI Conclusion Myocardial perfusion is normal. There is no ischemia or evidence of prior infarction Calculated EF is 46%, appears visually higher with normal wall motion Radiologist Interpretation Radiologist agrees with Receptionist Doctor'S Office's Interpretation. Radiologist Interpretation by: Markel Washington MD Interpretation Date/Time: 04/22/2024 19:12:55
[2024-04-22] MEDS: Regadenoson 0.4 MG/5 ML SYR IVP (13:04)
== END ==
PROVIDERS: PCP Physician Assistant Medical; Visit Provider Internal Medicine Cardiovascular Disease
DX: I25.10 Atherosclerotic heart disease of native coronary artery without angina pectoris (principal)
CPT/HCPCS: 78452; 93016; 93018; 93017; J2785

== ENCOUNTER → 2024-04-30 09:15 | Outpatient (BNVA) | payer MEDICARE, OTHER, SELFPAY | PROVIDERS: PCP Physician Assistant Medical; Referring Provider Physician Assistant Medical; Visit Provider Nurse Practitioner Gerontology | DX: N40.1 Benign prostatic hyperplasia with lower urinary tract symptoms (principal); N13.8 Other obstructive and reflux uropathy; C61 Malignant neoplasm of prostate; R33.8 Other retention of urine | CPT/HCPCS: 51798; 81003; 99213 ==

== ENCOUNTER 2024-04-30 10:11 | Outpatient (CLI) | payer MEDICARE, OTHER, SELFPAY ==
[2024-04-30 10:15] LABS: HCT 32.2 % (40.0-50.0); HGB 10.8 g/dL (13.5-17.5); MCH 30.7 pg (27.0-33.0); MCHC 33.5 % (32.0-36.0); MCV 92 fL (80-95); MPV 8.6 fL (8.0-11.0); Platelet Count 204 10^3/uL (130-400); RBC 3.52 10^6/uL (4.36-5.78); RDW 13.8 % (11.8-14.1); RDW-SD 46.7 fL; WBC 4.17 10^3/uL (4.4-10.8)
== END 2024-04-30 10:12 | disposition home or self-care (01) ==
LOC: LBO 10:12
PROVIDERS: PCP Physician Assistant Medical; Visit Provider Nurse Practitioner Gerontology
DX: C61 Malignant neoplasm of prostate (principal); N40.1 Benign prostatic hyperplasia with lower urinary tract symptoms; N13.8 Other obstructive and reflux uropathy
CPT/HCPCS: 36415; 51798; 81003; 85027; 99213

== ENCOUNTER 2024-04-30 17:54 | Outpatient (REF) | payer MEDICARE, OTHER, SELFPAY | END 2024-04-30 17:55 | disposition home or self-care (01) | LOC: LBN 17:54 | PROVIDERS: PCP Physician Assistant Medical; Visit Provider Nurse Practitioner Gerontology | DX: N39.0 Urinary tract infection, site not specified (principal) | CPT/HCPCS: 87077; 87086; 87186 ==

== ENCOUNTER → 2024-05-02 09:24 | Outpatient (BNVA) | payer MEDICARE, OTHER, SELFPAY | PROVIDERS: PCP Physician Assistant Medical; Referring Provider Physician Assistant Medical; Visit Provider Internal Medicine Cardiovascular Disease ==

== ENCOUNTER 2024-05-02 13:23 | Outpatient (CLI) | payer MEDICARE, OTHER, SELFPAY ==
[2024-05-02 10:54] LABS: PTT Activated 22.9 sec (23.6-32.8); Prothrombin Time 10.4 sec (9.1-11.1)
[2024-05-02 11:24] LABS: Anion Gap 9.9 mmol/L (3-11); BUN 31 mg/dL (7-18); CO2 22.1 mmol/L (21.0-32.0); CREATININE 2.2 mg/dL (0.70-1.30); Calcium 8.6 mg/dL (8.5-10.1); Chloride 106 mmol/L (98-107); Estimated GFR 30.66 (mL/min/1.73m2); Glucose 107 mg/dL (74-106); Potassium 4.5 mmol/L (3.5-5.1); Sodium 138 mmol/L (136-145)
== END 2024-05-02 13:24 | disposition home or self-care (01) ==
LOC: LBO 13:24
PROVIDERS: PCP Physician Assistant Medical; Visit Provider Internal Medicine Cardiovascular Disease
DX: I25.10 Atherosclerotic heart disease of native coronary artery without angina pectoris (principal); D64.9 Anemia, unspecified
CPT/HCPCS: 36415; 80048; 99214; 85610; 85730

== ENCOUNTER 2024-05-08 14:16 | Outpatient (REF) | payer MEDICARE, OTHER, SELFPAY ==
[2024-05-08 15:33] LABS: Abs Immature Grans 0.09 10^3/uL (0.0-0.06); Absolute Basophil Count 0.04 10^3/uL (0.0-0.2); Absolute Eosinophil Count 0.25 10^3/uL (0.0-0.7); Absolute Lymphocyte Count 0.47 10^3/uL (1.2-3.4); Absolute Neutrophil Count 4.61 10^3/uL (1.2-6.7); Basophils % 0.7 %; Eosinophils % 4.2 %; HGB 11.7 g/dL (13.5-17.5); Immature Grans % 1.5 %; Lymphocytes % 7.9 %; MCH 31.4 pg (27.0-33.0); MCHC 33.4 % (32.0-36.0); MCV 94 fL (80-95); Monocytes % 8.4 %; Neutrophils % 77.3 %; Platelet Count 312 10^3/uL (130-400); RBC 3.73 10^6/uL (4.36-5.78); RDW 13.8 % (11.8-14.1); RDW-SD 46.9 fL; WBC 5.96 10^3/uL (4.4-10.8)
[2024-05-08 15:44] LABS: Iron 43 ug/dL (65-175); Total Iron Binding Capacity 248 ug/dL (250-450); Transferrin Sat 17 % (20-55)
[2024-05-08 16:14] LABS: Ferritin 613 ng/mL (26-388); Vitamin B12 386 pg/mL (193-986)
== END 2024-05-08 14:17 | disposition home or self-care (01) ==
LOC: NCHCN 14:16
PROVIDERS: PCP Physician Assistant Medical; Visit Provider Nurse Practitioner Family
DX: D64.9 Anemia, unspecified (principal); Z79.899 Other long term (current) drug therapy
CPT/HCPCS: 82607; 82728; 82746; 83540; 83550; 85025

== ENCOUNTER 2024-06-05 10:57 | Outpatient (REF) | payer MEDICARE, OTHER, SELFPAY ==
[2024-06-05 16:48] LABS: Folate > 20.0 ng/mL (8.6-20.0)
[2024-06-06 13:06] LABS: IgA 145 mg/dL (85-499); Interpretation (See Note); Tissue Transglutaminase IgA <4.0 CU (<20.0)
== END 2024-06-05 10:58 | disposition home or self-care (01) ==
LOC: NCHCN 10:57
PROVIDERS: PCP Physician Assistant Medical; Visit Provider Nurse Practitioner Family
DX: E53.8 Deficiency of other specified B group vitamins (principal); D64.9 Anemia, unspecified; K21.9 Gastro-esophageal reflux disease without esophagitis; K57.30 Diverticulosis of large intestine without perforation or abscess without bleeding
CPT/HCPCS: 82784; 83516; 82746

== ENCOUNTER → 2024-06-10 13:43 | Outpatient (BNVA) | payer MEDICARE, OTHER, SELFPAY | PROVIDERS: PCP Physician Assistant Medical; Visit Provider Nurse Practitioner Gerontology | DX: N40.1 Benign prostatic hyperplasia with lower urinary tract symptoms (principal); N13.8 Other obstructive and reflux uropathy; R33.8 Other retention of urine; C61 Malignant neoplasm of prostate | CPT/HCPCS: 99213 ==

== ENCOUNTER 2024-07-12 10:30 | Outpatient (RCR) | payer MEDICARE, OTHER, SELFPAY ==
--- NOTE | 2024-06-21 10:45 | RT.EKG_ITS ---
APPROVED REPORT Exam: Resting ECG Reason for Exam: Baseline Patient Location: O HR:68 bpm ECG Measurements Heart Rate 68 AXIS IL 186 P 37 QRSd 109 QRS 33 QT 457 T 20 QTc 487 Conclusion Sinus rhythm...normal P axis, V-rate 50- [address]-T abnormalities
== END 2024-07-13 23:59 | disposition home or self-care (01) ==
LOC: CR 10:30
PROVIDERS: PCP Physician Assistant Medical; Visit Provider Internal Medicine Cardiovascular Disease
DX: I21.4 Non-ST elevation (NSTEMI) myocardial infarction (principal); Z51.89 Encounter for other specified aftercare
CPT/HCPCS: S9472

== ENCOUNTER → 2024-07-23 09:24 | Outpatient (BNVA) | payer MEDICARE, OTHER, SELFPAY | PROVIDERS: PCP Physician Assistant Medical; Referring Provider Physician Assistant Medical; Visit Provider Internal Medicine Cardiovascular Disease | DX: I25.10 Atherosclerotic heart disease of native coronary artery without angina pectoris (principal) | CPT/HCPCS: 99213 ==

== ENCOUNTER 2024-08-12 09:58 | Outpatient (RCR) | payer MEDICARE, OTHER, SELFPAY | END 2024-08-12 23:59 | disposition home or self-care (01) | LOC: CR 09:58 | PROVIDERS: PCP Physician Assistant Medical; Visit Provider Internal Medicine Cardiovascular Disease | DX: I21.4 Non-ST elevation (NSTEMI) myocardial infarction (principal); Z51.89 Encounter for other specified aftercare | CPT/HCPCS: S9472 ==

== ENCOUNTER 2024-08-12 15:23 | Outpatient (REF) | payer MEDICARE, OTHER, SELFPAY ==
[2024-08-12 19:12] LABS: Abs Immature Grans 0.02 10^3/uL (0.0-0.06); Absolute Basophil Count 0.03 10^3/uL (0.0-0.2); Absolute Eosinophil Count 0.03 10^3/uL (0.0-0.7); Absolute Lymphocyte Count 0.53 10^3/uL (1.2-3.4); Absolute Monocyte Count 0.52 10^3/uL (0.1-0.8); Absolute Neutrophil Count 3.64 10^3/uL (1.2-6.7); Basophils % 0.6 %; Eosinophils % 0.6 %; HCT 42.7 % (40.0-50.0); HGB 14.4 g/dL (13.5-17.5); Immature Grans % 0.4 %; Lymphocytes % 11.1 %; MCH 30.3 pg (27.0-33.0); MCHC 33.7 % (32.0-36.0); MCV 90 fL (80-95); MPV 9.9 fL (8.0-11.0); Monocytes % 10.9 %; Neutrophils % 76.4 %; Platelet Count 244 10^3/uL (130-400); RBC 4.76 10^6/uL (4.36-5.78); RDW 12.7 % (11.8-14.1); RDW-SD 41.4 fL; WBC 4.77 10^3/uL (4.4-10.8)
[2024-08-12 19:28] LABS: ALT 28 U/L (16-63); AST 23 U/L (15-37); Albumin 4.3 g/dL (3.4-5.0); Alkaline Phosphatase 107 U/L (46-116); Anion Gap 12.7 mmol/L (3-11); BUN 23 mg/dL (7-18); Bilirubin, Total 1.19 mg/dL (0.2-1.0); CO2 21.3 mmol/L (21.0-32.0); CREATININE 1.4 mg/dL (0.70-1.30); Calcium 9.1 mg/dL (8.5-10.1); Calculated LDL 150 mg/dL (<100); Chloride 105 mmol/L (98-107); Cholesterol 217 mg/dL (<200); Estimated GFR 52.41 (mL/min/1.73m2); Glucose 104 mg/dL (74-106); HDL Cholesterol 42 mg/dL (40-60); Potassium 4.4 mmol/L (3.5-5.1); Sodium 139 mmol/L (136-145); Total Protein 7.9 g/dL (6.4-8.2); Triglyceride 125 mg/dL (<150)
== END 2024-08-12 15:24 | disposition home or self-care (01) ==
LOC: NCHCN 15:23
PROVIDERS: PCP Physician Assistant Medical; Visit Provider Physician Assistant Medical
DX: I25.10 Atherosclerotic heart disease of native coronary artery without angina pectoris (principal); D64.9 Anemia, unspecified
CPT/HCPCS: 80053; 80061; 85025

== ENCOUNTER → 2024-09-09 14:12 | Outpatient (BNVA) | payer MEDICARE, OTHER, SELFPAY | PROVIDERS: PCP Physician Assistant Medical; Visit Provider Nurse Practitioner Gerontology | DX: N40.1 Benign prostatic hyperplasia with lower urinary tract symptoms (principal); N13.8 Other obstructive and reflux uropathy; R33.8 Other retention of urine; C61 Malignant neoplasm of prostate | CPT/HCPCS: 51798; 99213 ==

== ENCOUNTER 2024-09-11 10:49 | Outpatient (RCR) | payer MEDICARE, OTHER, SELFPAY | END 2024-09-12 23:59 | disposition home or self-care (01) | LOC: CR 10:49 | PROVIDERS: PCP Physician Assistant Medical; Visit Provider Internal Medicine Cardiovascular Disease | DX: I21.3 ST elevation (STEMI) myocardial infarction of unspecified site (principal); Z51.89 Encounter for other specified aftercare | CPT/HCPCS: S9472 ==

== ENCOUNTER 2024-09-20 10:08 | Outpatient (RCR) | payer MEDICARE, OTHER, SELFPAY | END 2024-10-12 23:59 | disposition home or self-care (01) | LOC: CR 10:08 | PROVIDERS: PCP Physician Assistant Medical; Visit Provider Internal Medicine Cardiovascular Disease | DX: I21.3 ST elevation (STEMI) myocardial infarction of unspecified site (principal); Z51.89 Encounter for other specified aftercare | CPT/HCPCS: S9472 ==

== ENCOUNTER 2024-10-07 13:43 | Outpatient (CLI) | payer MEDICARE, OTHER, SELFPAY ==
[2024-10-11 15:23] LABS: Testosterone, Total 457 ng/dL (240-950)
== END 2024-10-07 13:44 | disposition home or self-care (01) ==
LOC: LBO 13:51
PROVIDERS: PCP Physician Assistant Medical; Visit Provider Radiology Radiation Oncology
DX: C61 Malignant neoplasm of prostate (principal)
CPT/HCPCS: 36415; 84153; 84403

== ENCOUNTER → 2025-01-21 10:16 | Outpatient (BNVA) | payer MEDICARE, OTHER, SELFPAY | PROVIDERS: PCP Physician Assistant Medical; Visit Provider Internal Medicine Cardiovascular Disease | DX: I25.10 Atherosclerotic heart disease of native coronary artery without angina pectoris (principal) | CPT/HCPCS: 99214 ==

== ENCOUNTER 2025-04-03 09:15 | Outpatient (CLI) | payer MEDICARE, OTHER, SELFPAY ==
[2025-04-03 09:35] LABS: Anion Gap 13.8 mmol/L (3-11); BUN 22 mg/dL (7-18); CO2 20.2 mmol/L (21.0-32.0); CREATININE 1.3 mg/dL (0.70-1.30); Calcium 8.7 mg/dL (8.5-10.1); Chloride 107 mmol/L (98-107); Estimated GFR 57.29 (mL/min/1.73m2); Glucose 103 mg/dL (74-106); Potassium 3.8 mmol/L (3.5-5.1); Sodium 141 mmol/L (136-145)
[2025-04-08 14:07] LABS: PSA, Ultrasensitive 0.08 ng/mL (<= 6.5)
[2025-04-09 12:12] LABS: Testosterone, Total 435 ng/dL (240-950)
== END 2025-04-03 09:16 | disposition home or self-care (01) ==
LOC: LBO 09:15
PROVIDERS: PCP Physician Assistant Medical; Visit Provider Physician Assistant
DX: C61 Malignant neoplasm of prostate (principal); N18.9 Chronic kidney disease, unspecified
CPT/HCPCS: 36415; 80048; 84153; 84403

== ENCOUNTER → 2025-07-15 15:10 | Outpatient (BNVA) | payer MEDICARE, OTHER, SELFPAY | PROVIDERS: PCP Physician Assistant Medical; Visit Provider Nurse Practitioner Gerontology | DX: N40.1 Benign prostatic hyperplasia with lower urinary tract symptoms (principal); N13.8 Other obstructive and reflux uropathy; C61 Malignant neoplasm of prostate; R33.8 Other retention of urine; R39.9 Unspecified symptoms and signs involving the genitourinary system | CPT/HCPCS: 99213 ==

== ENCOUNTER → 2025-07-29 10:45 | Outpatient (BNVA) | payer MEDICARE, OTHER, SELFPAY | PROVIDERS: PCP Physician Assistant Medical; Referring Provider Physician Assistant Medical; Visit Provider Internal Medicine Cardiovascular Disease | DX: I25.10 Atherosclerotic heart disease of native coronary artery without angina pectoris (principal) | CPT/HCPCS: 99213 ==

== ENCOUNTER 2025-10-13 12:13 | Outpatient (CLI) | payer MEDICARE, OTHER, SELFPAY ==
[2025-10-13 12:19] LABS: HCT 41.2 % (40.0-50.0); HGB 14.5 g/dL (13.5-17.5); MCH 31.0 pg (27.0-33.0); MCHC 35.2 % (32.0-36.0); MCV 88 fL (80-95); MPV 9.3 fL (8.0-11.0); Platelet Count 203 10^3/uL (130-400); RBC 4.67 10^6/uL (4.36-5.78); RDW 13.1 % (11.8-14.1); RDW-SD 41.6 fL; WBC 5.51 10^3/uL (4.4-10.8)
[2025-10-13 13:38] LABS: ALT 19 U/L (10-49); AST 20 U/L (<34); Albumin 4.5 g/dL (3.2-5.0); Alkaline Phosphatase 67 U/L (46-116); Anion Gap 9.5 mmol/L (3-11); BUN 20 mg/dL (9-23); Bilirubin, Total 0.90 mg/dL (0.2-1.2); CO2 20.5 mmol/L (20.0-31.0); Calcium 8.6 mg/dL (8.3-10.6); Chloride 112 mmol/L (98-107); Cholesterol 186 mg/dL (<200); Glucose 100 mg/dL (74-106); HDL Cholesterol 42 mg/dL (>40); Potassium 3.9 mmol/L (3.5-5.1); Sodium 142 mmol/L (136-145); Total Protein 7.1 g/dL (5.7-8.2)
== END 2025-10-13 12:14 | disposition home or self-care (01) ==
LOC: LBO 12:14
PROVIDERS: PCP Physician Assistant Medical; Visit Provider Physician Assistant
DX: I25.10 Atherosclerotic heart disease of native coronary artery without angina pectoris (principal); I10 Essential (primary) hypertension; N18.9 Chronic kidney disease, unspecified; C61 Malignant neoplasm of prostate
CPT/HCPCS: 36415; 80053; 80061; 84153; 85027

== ENCOUNTER → 2025-10-27 09:18 | Outpatient (BNVA) | payer MEDICARE, OTHER, SELFPAY | PROVIDERS: PCP Physician Assistant Medical; Referring Provider Physician Assistant Medical; Visit Provider Student in an Organized Health Care Education/Training Program | DX: Z12.11 Encounter for screening for malignant neoplasm of colon (principal); K21.9 Gastro-esophageal reflux disease without esophagitis | CPT/HCPCS: S0285 ==